=== PATIENT | male | born 1940 | race Caucasian/White ===

== ENCOUNTER 2016-08-27 04:17 | Emergency (ER) | payer MEDICARE, OTHER ==
[~2016-08-27] VITALS: Ht 172.7 cm; Wt 76.6 kg
[~2016-08-27 04:17] MED LIST: ADV50050 INHALATION; ALBU18HF INHALATION; ALBU2.5V3 NEB; RTATR NEB; SELE118S2 TOP
[2016-08-27 04:24] VITALS: Ht 172.7 cm; Wt 76.6 kg
[2016-08-27] MEDS ORDERED: HYDROCODONE/APAP (5/325) TAB PO ONE (05:00)
[2016-08-27] MEDS ORDERED: NAPROXEN 500 MG TAB PO ONE (05:00)
--- NOTE | 2016-08-27 05:19 | ERD ---
ER Documentation Chief Complaint Date/Time DATE: 08/27/16 TIME: 05:16 Chief Complaint SP GROUND LEVEL FALL, NO LOC, NASAL ABRASION, LEFT RIB PAIN (KATIE MIRELES) HPI This is a 76-year-old male presents to the ER with left-sided rib pain after he fell off of his bed a week ago. Patient sleeps on an air mattress and there was less air on his head of the bed making him roll off. Patient has had severe rib pain it is nonradiating. He denies any chest pain or shortness of breath. Today patient was going to sit down on his chair when his dog got on it instead, the patient fell and hit his nose. Bleeding was controlled before arriving to the ER. He denies any dizziness. He did not hit his head. He denies any loss of consciousness nausea or vomiting. He denies any weakness. Patient is with family member who witnessed mechanical falls. (KATIE MIRELES) ROS 12 point review of systems was done, all negative except per HPI. (AKTIE MIRELES) Medications Home Meds Active Scripts Acetaminophen* (Tylophen*) 500 Mg Capsule, 1 CAP PO Q6H Y for PAIN AND OR ELEVATED TEMP, #20 CAP Prov:RUSSEL PAZ PA-C 08/27/16 Amoxicillin/Potassium Clav (Amox-Clav 875-125 mg Tablet) 875-125 mg Tab, 1 TAB PO BID for 7 Days, #14 TAB Prov:KATIE MIRELES 08/27/16 Reported Medications Ipratropium Happy Jack* (Atrovent*) 0.5 Mg/2.5 Ml Neb, 0.5 MG NEB Q6H Y for SHORTNESS OF BREATH, #1 BOX 01/27/16 Albuterol Sulfate* (Albuterol Sulfate* Neb) 0.083%-3 Ml Neb, 2.5 MG NEB Q6 Y for SHORTNESS OF BREATH, #30 VIAL 01/27/16 Albuterol Sulfate* (Ventolin HFA*) 18 Gm Hfa.aer.ad, 2 PUFF INHALATION Q6H, #1 INHALER 01/27/16 Salmeterol Xinaf-Fluticasone* (Advair*) 500/50 Diskus Inhaler, 1 INH INHALATION BID, #1 INHALER 07/16/15 Selenium Sulfide* (Selenium Sulfide*) 118 Ml Shampoo, 1 APPLIC TOP ONCE, ML 07/16/15 Discontinued Scripts Ibuprofen* (Motrin*) 400 Mg Tab, 400 MG PO Q6, #30 TAB Prov:KATIE MIRELES 08/27/16 Allergies Allergies: Coded Allergies: benazepril (Unverified Allergy, Mild, SAUCEDO, SOB, 08/27/16) Uncoded Allergies: BENZAPRIL (Allergy, Mild, SAUCEDO, SOB, 11/19/12) REACTION UNKNOWN ANTIBIOTICS-UNKNOWN (Allergy, Unknown, 11/19/12) PMhx/Soc History of Surgery: Yes (FACIAL & HEAD SURGERY) Anesthesia Reaction: No Hx Neurological Disorder: No Hx Respiratory Disorders: No Hx Cardiac Disorders: No Hx Psychiatric Problems: No Hx Miscellaneous Medical Probl: No Hx Alcohol Use: No Hx Substance Use: No Hx Tobacco Use: Yes (QUIT 20 YEARS AGO) Smoking Status: Former smoker (KATIE MIRELES) Physical Exam Vitals Vital Signs Date Time Temp Pulse Resp B/P Pulse Ox O2 Delivery O2 Flow Rate FiO2 08/27/16 07:10 98.5 78 20 144/77 98 Room Air 08/27/16 04:24 97.6 86 20 138/90 96 (RUSSEL PAZ-C) Physical Exam GENERAL: The patient is well developed and appropriate for usual state of health , in no apparent distress. HEENT: Atraumatic. Conjunctivae are pink. Pupils equal, round, and reactive to light. Extraocular muscles are grossly intact. Bilateral tympanic membranes are clear with no evidence of erythema, bulging or perforation. No sinus tenderness. Patient has a small abrasion to the bridge of his nose. No septal hematoma NECK: C-spine is soft and supple. There is no cervical lymphadenopathy. CHEST: Clear to auscultation bilaterally. There are no rales, wheezes or rhonchi. There is an area of ecchymosis to the left ribs. HEART: Regular rate and rhythm. No murmurs, clicks, rubs or gallops. EXTREMITIES: Equal pulses bilaterally. There is no peripheral clubbing, cyanosis or edema. No focal swelling or erythema. Full range of motion. Grossly neurovascularly intact. NEURO: Alert and oriented. Cranial nerves II through XII are intact. Motor strength in all 4 extremities with 5/5 strength. Sensation grossly intact. Normal speech and gait. Negative Rhomberg. +2 DTRs. SKIN: There is no apparent rash or petechia. The skin is warm and dry. (KATIE MIRELES) Results 24 hrs Current Medications Medications (Trade) Dose Ordered Sig/Quita Route PRN Reason Start Time Stop Time Status Last Admin Dose Admin Acetaminophen/ Hydrocodone Bitart (Hayes (5/325)) 1 tab ONCE ONCE PO 08/27/16 05:00 08/27/16 05:00 DC Naproxen (Naprosyn) 500 mg ONCE ONCE PO 08/27/16 05:00 08/27/16 05:01 DC 08/27/16 05:02 (RUSSEL PAZ PA-C) Procedures/MDM Patient was signed out to me by Katie Mireles PA-C 6 AM on 08-27-2016, pending CT brain and CT facial bones. ED COURSE: The patient was stable throughout ED course. I kept the patient and/or family informed of laboratory and diagnostic imaging results throughout the ED course. DIAGNOSTIC IMAGING: Read by radiologist. DIAGNOSTIC IMAGING REPORT Patient: ARMEN BUCHANAN : 1940 Age: 76 Sex: M MR #: [id number] DOS: 08/27/16 0000 Ordering MD: KATIE MIRELES PA-C Location: [facility] Room/Bed: PROCEDURE: XR Ribs. CLINICAL INDICATION: Chest pain. TECHNIQUE: 3 frontal and oblique views of the left ribs were obtained. The images were reviewed on a PACS workstation. COMPARISON: None. FINDINGS: There is no evidence for a rib fracture. The underlying lung parenchyma is intact without evidence for pneumothorax. IMPRESSION: No acute rib fracture identified. .Rikki Galvin MD, Date Time Electronically viewed and signed by .Rikki Galvin MD, MD on 08/27/2016 05:32 .T/ CC: KATIE MIRELES DIAGNOSTIC IMAGING REPORT Patient: ARMEN BUCHANAN : 1940 Age: 76 Sex: M MR #: [id number] DOS: 08/27/16 0000 Ordering MD: KATIE MIRELES PA-C Location: [facility] Room/Bed: PROCEDURE: Facial bones. CLINICAL INDICATION: Injury and pain. TECHNIQUE: Four views of the facial bones including AP and lateral views were obtained. COMPARISON: None. FINDINGS: There are fractures of the nasal bone. There are fractures of the forehead involving the anterior wall of the frontal sinus. Visualized paranasal sinuses are otherwise clear without air fluid levels. IMPRESSION: Fractures of the forehead involving the anterior wall of the frontal sinus. Further evaluation can be made by CT. Nasal bone fractures. .Rikki Galvin MD, Date Time Electronically viewed and signed by .Rikki Galvin MD, MD on 08/27/2016 05:34 .T/ CC: KATIE MIRELES DIAGNOSTIC IMAGING REPORT Patient: ARMEN BUCHANAN : 1940 Age: 76 Sex: M MR #: [id number] DOS: 08/27/16 0000 Ordering MD: KATIE MIRELES PA-C Location: [facility] Room/Bed: PROCEDURE: CT scan of the sinuses without contrast. CLINICAL INDICATION: fall TECHNIQUE: CT scan of the sinuses without contrast was performed on a multidetector high-resolution CT scan. Standard CT scan of the sinuses without contrast protocols were performed. The total exam CTDI equals 29.53 mGy and the total exam DLP equals 595.09 mGy- cm. One or more of the following dose reduction techniques were used: - Automated exposure control. - Adjustment of the mA and/or kV according to patient size. Use of iterative reconstruction technique. COMPARISON: None. FINDINGS: There is mild soft tissue swelling along the frontal scalp. There is extensive comminuted fracture involving the anterior right left frontal sinuses with mild depression . Fracture involves the anterior medial superior right orbital wall. A small bony fragment is seen along the anterior superior left globe. The globes are intact and symmetrical without evidence of proptosis. No evidence of delete the retrobulbar are hematomas. There are fractures involving the right and left lamina papyracea which appear old. Recommend clinical correlation. There is mild concave depression of the anterior right maxillary sinus wall that appears chronic. There is comminuted right and left nasal bone fractures. Soft tissue swelling along the nose. Tiny chip fracture of the nasal spine. There are no other facial fractures. There is mucosal thickening involving the right ethmoid and maxillary sinuses consistent with chronic sinusitis. There is opacification of both frontal sinuses which may all be due to hemorrhage. No evidence of air-fluid levels within the paranasal sinuses. The mastoids are unremarkable. IMPRESSION: 1. Extensive comminuted fractures involving the right and left frontal sinuses with mild depression of the fragments. Opacification of the frontal sinuses may all be due to blood. 2. Anterior medial superior right orbital wall fracture. 3. Small bony fragment seen along the anterior superior left globe. 4. Chronic right and left lamina papyracea fractures. 5. Comminuted right and left nasal bone fractures. Tiny nasal spine chip fracture. 6. No evidence of globe rupture or retrobulbar are hematomas. 7. Mild soft tissue swelling involving the frontal scalp and paranasal region. No radiodense foreign bodies. RPTAT:AAJJ Physician Bartolome Date Time Electronically viewed and signed by Physician Bartolome on 08/27/2016 06:41 BM/ CC: KATIE MIRELES DIAGNOSTIC IMAGING REPORT Patient: ARMEN BUCHANAN : 1940 Age: 76 Sex: M MR #: [id number] DOS: 08/27/16 0000 Ordering MD: KATIE MIRELES. KELLY Location: [facility] Room/Bed: PROCEDURE: CT Brain without contrast. CLINICAL INDICATION: fall TECHNIQUE: CT scan of the brain was performed on a multidetector high- resolution CT scan. Axial imaging was obtained of the brain without contrast administration. Coronal and sagittal reformatted images were obtained from the axial source images. Standard CT scan of the head without contrast protocols were performed. The total exam CTDI equals 39.64 mGy and the total exam DLP equals 713.51 mGy- cm. One or more of the following dose reduction techniques were used: - Automated exposure control. - Adjustment of the mA and/or kV according to patient size. Use of iterative reconstruction technique. COMPARISON: None. FINDINGS: Recommend reference to the CT scan of the face Report for a facial fractures. There is comminuted fractures involving the anterior aspects of the right and left frontal sinuses. The remainder of the calvarium is intact. The ventricular system and peripheral CSF spaces are unremarkable. Negative for intracranial masses hemorrhages or midline shift. There is mild nonspecific periventricular deep white matter changes consistent with chronic microvascular ischemic changes. IMPRESSION: 1. Comminuted fractures involving the right and left frontal sinuses and recommend reference to the CT scan of the face report. 2. No evidence of intracranial masses hemorrhages or midline shift. 3. Mild nonspecific periventricular deep white matter changes. RPTAT:AAJJ Physician Bartolome Date Time Electronically viewed and signed by Physician Bartolome on 08/27/2016 06:30 BM/ CC: KATIE MIRELES MEDICAL DECISION MAKING: This is a 76-year-old male who presents with facial pain, nasal abrasions, left rib pain status post ground-level fall. Patient denied any loss of consciousness. Vital signs were reviewed. Patient was afebrile. Patient was not hypoxic. Given the x-ray imaging of the face showed fractures of the forehead involving the anterior wall of the frontal sinus and nasal bone fractures, CT imaging was advised. CT imaging of the brain showed no signs of acute hemorrhage, intracranial edema or mass-effect. CT scan of the facial bones showed extensive comminuted fractures involving the right and left frontal sinuses with mild depression of the fragments. Opacification of the frontal sinuses may all be due to blood. Anterior medial superior right orbital wall fracture. Small bony fragment seen along the anterior superior left globe. Chronic right and left lamina papyracea fractures. Comminuted right and left nasal bone fractures. Tiny nasal spine chip fracture. No evidence of globe rupture or retrobulbar are hematomas. Mild soft tissue swelling involving the frontal scalp and paranasal region. No radiodense foreign bodies. I discussed these findings with my supervising physician Dr. Matias who agreed the patient was stable for discharge. Patient will need to follow-up with a facial plastic surgeon and/or ENT specialist for further management of his symptoms. Patient will be discharged with a prescription for Augmentin and Tylenol. PRESCRIPTIONS: Tylenol Augmentin Zofran DISCHARGE: At this time, patient is stable for discharge and outpatient management. Strict head injury precautions are discussed with patient and his . I have instructed the family to monitor the patient closely and return to the ER immediately for any new or worsening symptoms including increased pain, headache , nausea, vomiting, weakness, numbness, confusion, excessive sleepiness, seizures or LOC. Patient should follow-up with his/her primary care physician in 1-2 days. The patient and/or family expressed understanding of and agreement with this plan. All questions were answered. Home care instructions were provided. (RUSSEL PAZ PA-C) Departure Diagnosis: Primary Impression: Fall Condition: Stable CHI,KATIE Messina Aug 27, 2016 05:18 RUSSEL PAZ PA-C Aug 27, 2016 19:34
[2016-08-27] MEDS ORDERED: IBUP400T22 PO (05:22)
--- NOTE | 2016-08-27 05:32 | RADRPT ---
PROCEDURE: XR Ribs. CLINICAL INDICATION: Chest pain. TECHNIQUE: 3 frontal and oblique views of the left ribs were obtained. The images were reviewed o n a PACS workstation. COMPARISON: None. FINDINGS: There is no evidence for a rib fracture. The underlying lung parenchyma is intact without evidence f or pneumothorax. IMPRESSION: No acute rib fracture identified. .Rikki Galvin MD, MD Date Time Electronically viewed and signed by .Rikki Galvin MD, MD on 08/27/2016 05:32 .T/
--- NOTE | 2016-08-27 05:34 | RADRPT ---
PROCEDURE: Facial bones. CLINICAL INDICATION: Injury and pain. TECHNIQUE: Four views of the facial bones including AP and lateral views were obtained. COMPARISON: None. FINDINGS: There are fractures of the nasal bone. There are fractures of the forehead involving the anterior w all of the frontal sinus. Visualized paranasal sinuses are otherwise clear without air fluid levels . IMPRESSION: Fractures of the forehead involving the anterior wall of the frontal sinus. Further evaluation can b e made by CT. Nasal bone fractures. .Rikki Galvin MD, Date Time Electronically viewed and signed by .Rikki Galvin MD, MD on 08/27/2016 05:34 .T/
[2016-08-27] MEDS ORDERED: AMOX1TAB10 PO (05:47)
--- NOTE | 2016-08-27 06:31 | RADRPT ---
PROCEDURE: CT Brain without contrast. CLINICAL INDICATION: fall TECHNIQUE: CT scan of the brain was performed on a multidetector high-resolution CT scan. Axial im aging was obtained of the brain without contrast administration. Coronal and sagittal reformatted i mages were obtained from the axial source images. Standard CT scan of the head without contrast prot ocols were performed. The total exam CTDI equals 39.64 mGy and the total exam DLP equals 713.51 mGy-cm. One or more of the following dose reduction techniques were used: - Automated exposure control. - Adjustment of the mA and/or kV according to patient size. Use of iterative reconstruction technique. COMPARISON: None. FINDINGS: Recommend reference to the CT scan of the face Report for a facial fractures. There is comminuted f ractures involving the anterior aspects of the right and left frontal sinuses. The remainder of the calvarium is intact. The ventricular system and peripheral CSF spaces are unremarkable. Negative for intracranial masses hemorrhages or midline shift. There is mild nonspecific periventricular mitzi p white matter changes consistent with chronic microvascular ischemic changes. IMPRESSION: 1. Comminuted fractures involving the right and left frontal sinuses and recommend reference to the CT scan of the face report. 2. No evidence of intracranial masses hemorrhages or midline shift. 3. Mild nonspecific periventricular deep white matter changes. RPTAT:AAJJ Physician Bartolome Date Time Electronically viewed and signed by Physician Bartolome on 08/27/2016 06:30 BM/
--- NOTE | 2016-08-27 06:42 | RADRPT ---
PROCEDURE: CT scan of the sinuses without contrast. CLINICAL INDICATION: fall TECHNIQUE: CT scan of the sinuses without contrast was performed on a multidetector high-resoluti on CT scan. Standard CT scan of the sinuses without contrast protocols were performed. The total exam CTDI equals 29.53 mGy and the total exam DLP equals 595.09 mGy-cm. One or more of the following dose reduction techniques were used: - Automated exposure control. - Adjustment of the mA and/or kV according to patient size. Use of iterative reconstruction technique. COMPARISON: None. FINDINGS: There is mild soft tissue swelling along the frontal scalp. There is extensive comminuted fracture involving the anterior right left frontal sinuses with mild depression . Fracture involves the ante rior medial superior right orbital wall. A small bony fragment is seen along the anterior superior left globe. The globes are intact and symmetrical without evidence of proptosis. No evidence of del ete the retrobulbar are hematomas. There are fractures involving the right and left lamina papyracea which appear old. Recommend clinical correlation. There is mild concave depression of the anterio r right maxillary sinus wall that appears chronic. There is comminuted right and left nasal bone fr actures. Soft tissue swelling along the nose. Tiny chip fracture of the nasal spine. There are no other facial fractures. There is mucosal thickening involving the right ethmoid and maxillary sinu ses consistent with chronic sinusitis. There is opacification of both frontal sinuses which may all be due to hemorrhage. No evidence of air-fluid levels within the paranasal sinuses. The mastoi ds are unremarkable. IMPRESSION: 1. Extensive comminuted fractures involving the right and left frontal sinuses with mild depression of the fragments. Opacification of the frontal sinuses may all be due to blood. 2. Anterior medial superior right orbital wall fracture. 3. Small bony fragment seen along the anterior superior left globe. 4. Chronic right and left lamina papyracea fractures. 5. Comminuted right and left nasal bone fractures. Tiny nasal spine chip fracture. 6. No evidence of globe rupture or retrobulbar are hematomas. 7. Mild soft tissue swelling involving the frontal scalp and paranasal region. No radiodense forei gn bodies. RPTAT:AAJJ Aishwarya Rod Physician Date Time Electronically viewed and signed by Aishwarya Rod Physician on 08/27/2016 06:41 BM/
[2016-08-27] MEDS ORDERED: ACET500C5 PO (06:59)
[2016-08-27 07:10] VITALS: BP 144/77; PULSE 78; RESP 20; TEMP 98.5
== END 2016-08-27 07:11 | disposition home or self-care (01) ==
LOC: FTE 04:17
DX: S29.001A Unspecified injury of muscle and tendon of front wall of thorax, initial encounter (principal); S00.31XA Abrasion of nose, initial encounter; S09.93XA Unspecified injury of face, initial encounter; R51 Headache; J44.9 Chronic obstructive pulmonary disease, unspecified; W06.XXXA Fall from bed, initial encounter; Y92.9 Unspecified place or not applicable; Z87.891 Personal history of nicotine dependence
CPT/HCPCS: 70140; 70450; 70486; 71100

== ENCOUNTER 2017-03-06 02:20 | Inpatient (IN) | payer MEDICARE, OTHER ==
[~2017-03-06] VITALS: Ht 172.7 cm; Wt 76.3 kg
[~2017-03-06 02:20] MED LIST changes: +ACET500C5 PO; +AMOX1TAB10 PO
[2017-03-06 02:47] VITALS: Ht 172.7 cm; Wt 76.3 kg
[2017-03-06] MEDS ORDERED: ALBUTEROL 0.5% (NEB) 2.5 MG/0.5 ML AMP INH STA (03:05)
[2017-03-06] MEDS ORDERED: IPRATROPIUM (NEB) 0.5 MG/2.5 ML AMP INH STA (03:05)
[2017-03-06] MEDS ORDERED: METHYLPREDNISOLONE 125 MG INJ IV STA (03:05)
--- NOTE | 2017-03-06 03:12 | ERA ---
ER Documentation Chief Complaint Date/Time DATE: 03/06/17 TIME: 03:09 Chief Complaint SOB HX of COPD, weak harder for him to ambulate. HPI 76-year-old man brought in by family members for shortness of breath. Symptoms began gradually a few days ago although got worse tonight. He does have a long history of chronic obstructive pulmonary disease and has not been using bronchodilator therapy. Patient also states for the last week he has had bilateral lower extremity edema which has never happened before. Patient denies using aspirin, he has had no fevers or chills, no vomiting or diarrhea, no chest pain, no headache or blurry vision. ROS All systems reviewed and are negative except as per history of present illness. Medications Home Meds Active Scripts Acetaminophen* (Tylophen*) 500 Mg Capsule, 1 CAP PO Q6H Y for PAIN AND OR ELEVATED TEMP, #20 CAP Prov:RUSSEL PAZ PA-C 08/27/16 Amoxicillin/Potassium Clav (Amox-Clav 875-125 mg Tablet) 875-125 mg Tab, 1 TAB PO BID for 7 Days, #14 TAB Prov:HARLAN MIRELES 08/27/16 Reported Medications Ipratropium [place]* (Atrovent*) 0.5 Mg/2.5 Ml Neb, 0.5 MG NEB Q6H Y for SHORTNESS OF BREATH, #1 BOX 01/27/16 Albuterol Sulfate* (Albuterol Sulfate* Neb) 0.083%-3 Ml Neb, 2.5 MG NEB Q6 Y for SHORTNESS OF BREATH, #30 VIAL 01/27/16 Albuterol Sulfate* (Ventolin HFA*) 18 Gm Hfa.aer.ad, 2 PUFF INHALATION Q6H, #1 INHALER 01/27/16 Salmeterol Xinaf-Fluticasone* (Advair*) 500/50 Diskus Inhaler, 1 INH INHALATION BID, #1 INHALER 07/16/15 Selenium Sulfide* (Selenium Sulfide*) 118 Ml Shampoo, 1 APPLIC TOP ONCE, ML 07/16/15 Allergies Allergies: Coded Allergies: benazepril (Unverified Allergy, Mild, SAUCEDO, SOB, 08/27/16) Uncoded Allergies: BENZAPRIL (Allergy, Mild, SAUCEDO, SOB, 11/19/12) REACTION UNKNOWN ANTIBIOTICS-UNKNOWN (Allergy, Unknown, 11/19/12) PMhx/Soc Hypertension, COPD History of Surgery: Yes (FACIAL & HEAD SURGERY) Anesthesia Reaction: No Hx Neurological Disorder: No Hx Respiratory Disorders: Yes (copd) Hx Cardiac Disorders: No Hx Psychiatric Problems: No Hx Miscellaneous Medical Probl: No Hx Alcohol Use: No Hx Substance Use: No Hx Tobacco Use: Yes (QUIT 20 YEARS AGO) Smoking Status: Current some day smoker FmHx Family History: No diabetes Physical Exam Vitals Vital Signs Date Time Temp Pulse Resp B/P Pulse Ox O2 Delivery O2 Flow Rate FiO2 03/06/17 04:10 19 168/93 100 Room Air 03/06/17 03:55 22 175/91 100 Room Air 03/06/17 03:20 74 18 96 21 03/06/17 02:55 97.7 20 180/89 92 Room Air 03/06/17 02:47 97.7 83 20 180/89 92 Physical Exam GENERAL: Well-developed, well-nourished, well-hydrated, dyspneic, afebrile HEENT: Moist mucous membranes, pink conjunctiva, no cervical spine tenderness or step-off deformities, no goiter, no jaundice or icterus, extraocular movements intact without pain. No submandibular induration, and no pharyngeal erythema NEURO: Alert and oriented 3, cranial nerves II through XII intact bilaterally, pupils equal round reactive to light, no focal deficits or facial asymmetry, sensation intact distally Strength 5/5 in upper and lower extremities bilaterally CARDIAC: Regular rate and rhythm, no murmurs rubs or gallops LUNGS: Poor breath sounds bilaterally, + crackles and wheezes, no stridor ABDOMEN: Soft nontender, no guarding, no rigidity, no rebound, no psoas sign no obturator sign. Normoactive bowel sounds SKIN: Warm and dry to touch, no abrasions, contusions, or hematomas, no lacerations, no ecchymosis, no target lesions, and without ulcers EXTREMITIES:, 3+ pitting edema in the lower extremities bilaterally, calves are bilaterally symmetrical, no Homans sign, no popliteal cord sign. Distal pulses equal and bilateral PSYCH: Normal affect without agitation or irritability Result Diagram: 03/06/17 0311 03/06/17 0311 Results 24 hrs Laboratory Tests Test 03/06/17 03:11 White Blood Count 7.410^3/ul Red Blood Count 5.0110^6/ul Hemoglobin 14.4g/dl Hematocrit 44.6% Mean Corpuscular Volume 89.0fl Mean Corpuscular Hemoglobin 28.7pg Mean Corpuscular Hemoglobin Concent 32.3g/dl Red Cell Distribution Width 13.4% Platelet Count 53058^3/UL Mean Platelet Volume 9.6fl Neutrophils % 71.3% Lymphocytes % 18.6% Monocytes % 8.2% Eosinophils % 1.5% Basophils % 0.1% Nucleated Red Blood Cells % 0.0/100WBC Neutrophils # (Manual) 5.310^3/ul Lymphocytes # 1.410^3/ul Monocytes # 0.610^3/ul Eosinophils # 0.110^3/ul Basophils # 0.010^3/ul Nucleated Red Blood Cells # 0.010^3/ul Sodium Level 144mmol/L Potassium Level 3.9mmol/L Chloride Level 98mmol/L Carbon Dioxide Level 37mmol/L Anion Gap 13 Blood Urea Nitrogen 17mg/dl Creatinine 0.77mg/dl Glucose Level 244mg/dl Calcium Level 9.4mg/dl Total Bilirubin 0.5mg/dl Direct Bilirubin 0.00mg/dl Indirect Bilirubin 0.5mg/dl Aspartate Amino Transf (AST/SGOT) 30IU/L Alanine Aminotransferase (ALT/SGPT) 42IU/L Alkaline Phosphatase 94IU/L Troponin I 0.083ng/ml B-Type Natriuretic Peptide 2390PG/ML Total Protein 8.6g/dl Albumin 4.4g/dl Globulin 4.20g/dl Albumin/Globulin Ratio 1.04 Lipase 28U/L Current Medications Medications (Trade) Dose Ordered Sig/Q[place] Route PRN Reason Start Time Stop Time Status Last Admin Dose Admin Nitroglycerin (Nitroglycerin (Sl Tab) 0.4 Mg) 1 tab ONCE ONCE SL 03/06/17 03:30 03/06/17 03:31 DC 03/06/17 03:36 Aspirin (Aspirin) 324 mg ONCE ONCE PO 03/06/17 03:30 03/06/17 03:31 DC 03/06/17 03:35 Furosemide (Lasix) 40 mg ONCE ONCE IV 03/06/17 03:30 03/06/17 03:31 DC 03/06/17 03:36 Clonidine (Catapres) 0.1 mg ONCE ONCE PO 03/06/17 03:30 03/06/17 03:31 DC 03/06/17 03:35 Albuterol (Proventil 0.5% (Neb)) 10 mg ONCE STAT INH 03/06/17 03:05 03/06/17 03:09 DC 03/06/17 03:18 Ipratropium [place] (Atrovent 0.02% (Neb)) 1 mg ONCE STAT INH 03/06/17 03:05 03/06/17 03:09 DC 03/06/17 03:18 Methylprednisolone Sodium Succinate (Solu-Medrol) 125 mg ONCE STAT IV 03/06/17 03:05 03/06/17 03:09 DC 03/06/17 03:34 Procedures/MDM IV line was established patient was placed on wheel aligner rhythm strip revealed a wide-complex sinus rhythm at about 70 bpm. Patient was afebrile. For patient's dyspnea I treated him with albuterol 10 mg via nebulizer, ipratropium 1 mg via nebulizer, methylprednisolone 125 mg IV 1. Patient also received aspirin 324 mg p.o. for cardioprotective measures, clonidine 0.1 mg p.o., nitroglycerin 0.4 mg sublingual, and furosemide 40 mg IV 1. EKG performed, read by me revealed a normal sinus rhythm at 75 bpm, left axis deviation and a right bundle branch block QRS duration 140 ms, no concerning ST elevations or depressions noted. Chest X-ray 1V Interpreted by me: Soft Tissue: No acute abnormalities Bones: No acute abnormalities Mediastinum/Cardiac Silhouette/Lungs: No acute abnormalities Critical Care: Time: 50 minutes, this was time separate from other billable procedures. Treatments/Evaluations: Close monitoring and treatment of unstable vital signs, cardiorespiratory, and neurologic status, while maintaining tight balance of fluid, respiratory, and cardiac interventions. CBC and electrolytes were unremarkable, liver function test was normal, troponin negative, BNP elevated at about 2400. Patient remains symptomatic and has begun to diurese, he will be admitted to telemetry setting for continued medical management Departure Diagnosis: Primary Impression: COPD (chronic obstructive pulmonary disease) Qualified Code: J44.1 - Chronic obstructive pulmonary disease with acute exacerbation Additional Impressions: CHF (congestive heart failure) Qualified Code: I50.21 - Acute systolic congestive heart failure Hypertensive emergency Condition: DILAN Stearns MD Mar 06, 2017 03:12
[2017-03-06 03:30] LABS: BASOPHILS % 0.1 % (0.0-2.0); EOSINOPHILS # 0.1 10^3/ul (0.0-0.5); EOSINOPHILS % 1.5 % (0.0-7.0); HEMATOCRIT 44.6 % (42.0-52.0); HEMOGLOBIN 14.4 g/dl (14.0-18.0); LYMPHOCYTES # 1.4 10^3/ul (0.8-2.9); LYMPHOCYTES % 18.6 % (15.0-51.0); MEAN CORPUSCULAR HEMOGLOBIN 28.7 pg (29.0-33.0); MEAN CORPUSCULAR HGB CONC 32.3 g/dl (32.0-37.0); MEAN PLATELET VOLUME 9.6 fl (7.4-10.4); MONOCYTE # 0.6 10^3/ul (0.3-0.9); MONOCYTES % 8.2 % (0.0-11.0); NEUTROPHILS % 71.3 % (39.0-77.0); PLATELET COUNT 207 10^3/UL (140-415); RED BLOOD COUNT 5.01 10^6/ul (4.70-6.10); RED CELL DISTRIBUTION WIDTH 13.4 % (11.5-14.5); WHITE BLOOD COUNT 7.4 10^3/ul (4.8-10.8)
[2017-03-06] MEDS ORDERED: NITROGLYCERIN (SL) 0.4 MG TAB SL ONE (03:30)
[2017-03-06] MEDS ORDERED: FUROSEMIDE 40 MG INJ IV ONE (03:30)
[2017-03-06] MEDS ORDERED: ASPIRIN 81 MG TAB PO ONE (03:30)
[2017-03-06 03:51] LABS: ALBUMIN 4.4 g/dl (3.3-4.9); ALBUMIN/GLOBULIN RATIO 1.04; BILIRUBIN,INDIRECT 0.5 mg/dl (0-1.1); BILIRUBIN,TOTAL 0.5 mg/dl (0.2-1.3); CALCIUM 9.4 mg/dl (8.4-10.2); CREATININE 0.77 mg/dl (0.61-1.24); POTASSIUM 3.9 mmol/L (3.5-5.1); TOTAL PROTEIN 8.6 g/dl (6.1-8.1)
[2017-03-06 04:02] LABS: TROPONIN-I 0.083 ng/ml (0.00-0.12)
--- NOTE | 2017-03-06 04:26 | RADRPT ---
PROCEDURE: Chest. CLINICAL INDICATION: Chest pain. TECHNIQUE: Single frontal view of the chest was obtained. COMPARISON: 08/27/2016. FINDINGS: The cardiac silhouette is within normal limits. The aortic arch is calcified. There is no focal co nsolidation, vascular congestion or pleural effusion. There is no pneumothorax. IMPRESSION: No evidence for active cardiopulmonary disease. Aortic atherosclerosis. .Rikki Galvin MD, MD Date Time Electronically viewed and signed by .Rikki Galvin MD, on 03/06/2017 04:25 .T/
[2017-03-06] MEDS ORDERED: ONDANSETRON 4 MG INJ IV STA (12:20)
[2017-03-06] MEDS ORDERED: GLUCOSE GEL 15 GRAM TUBE BUCCAL PRN (12:30)
[2017-03-06] MEDS ORDERED: PROVENTIL HFA 6.7GM INHALER INH SCH (12:30)
[2017-03-06] MEDS ORDERED: ALBUTEROL 0.083% (NEB) 2.5 MG/3 ML AMP NEB PRN (12:30)
[2017-03-06] MEDS ORDERED: HYPOGLYCEMIA PROTOCOL when Glucose is <70 mg/dL or symptomatic <90 mg/dL. XX ONE (12:30)
[2017-03-06] MEDS ORDERED: GLUCAGON 1 MG INJ IM PRN (12:30)
[2017-03-06] MEDS ORDERED: hydrALAzine 20 MG INJ IV PRN (12:30)
[2017-03-06] MEDS ORDERED: GLUCOSE GEL 15 GRAM TUBE PO PRN ×2 (12:30)
[2017-03-06] MEDS ORDERED: ACETAMINOPHEN 1000MG/100ML IV 100 ML IVPB PRN (12:30)
[2017-03-06] MEDS ORDERED: IPRATROPIUM (NEB) 0.5 MG/2.5 ML AMP NEB PRN (12:30)
[2017-03-06] MEDS ORDERED: Discontinue current oral sulfonylureas (glyburide, glipizide, and/or glimepiride) prior to XX ONE (12:30)
[2017-03-06] MEDS ORDERED: DEXTROSE 50% 50 ML SYRINGE IV PRN ×2 (12:30)
[2017-03-06 12:37] LABS: CHOL/HDL RATIO 3.1 RATIO
[2017-03-06] MEDS ORDERED: ACETAMINOPHEN 325 MG TAB PO PRN (13:00)
[2017-03-06] MEDS ORDERED: INSULIN ASPART [NOVOLOG] 3 ML PEN SC SCH (13:00)
--- NOTE | 2017-03-06 13:48 | RADRPT ---
PROCEDURE: US Lower extremity venous, bilateral CLINICAL INDICATION: edema, shortness of breath TECHNIQUE: Multiple sonographic images of the bilateral lower extremity deep venous system was ob tained utilizing grayscale, color-flow, compressive sonography and doppler imaging with augmentation . The images were reviewed on a PACS workstation. COMPARISON: None. FINDINGS: There is normal compressibility and flow within the bilateral common femoral, superficial femoral , posterior tibial, peroneal and popliteal veins. RPTAT: AA IMPRESSION: No sonographic evidence for deep venous thrombosis in bilateral lower extremities. Physician Chad Date Time Electronically viewed and signed by Physician Chad on 03/06/2017 13:48 /
[2017-03-06 14:59] VITALS: TEMP 98
--- NOTE | 2017-03-06 15:03 | HP ---
Date/Time of Note Date/Time of Note DATE: 03/06/17 TIME: 11:57 Assessment/Plan VTE Prophylaxis VTE Prophylaxis Intervention: SCD's Assessment/Plan Assessment/Plan COPD (chronic obstructive pulmonary disease) - Pulmonary consult- Dr Islas notified - breathing treatment - solumedrol - Levaquin CHF (congestive heart failure) - Acute systolic congestive heart failure - Cardiology consult- Dr Rincon - 2d ECHO - BLE SWELLING - Venous Doppler r/o DVT - Elevate BLE at all times Hypertensive emergency- BP stable now FACIAL & HEAD SURGERY Current some day smoker, QUIT 20 YEARS AGO - Smoking cessation PLAN: Dw Dr Erazo/staff HPI/ROS Admit Date/Time Admit Date/Time Hx of Present Illness 76-year-old man brought in by family members for shortness of breath. Symptoms began gradually a few days ago although got worse tonight. He does have a long history of chronic obstructive pulmonary disease and has not been using bronchodilator therapy. Patient also states for the last week he has had bilateral lower extremity edema which has never happened before. Patient denies using aspirin, he has had no fevers or chills, no vomiting or diarrhea, no chest pain, no headache or blurry vision. ROS All systems reviewed and are negative except as per history of present illness. Allergies Allergies: Coded Allergies: benazepril (Unverified Allergy, Mild, SAUCEDO, SOB, 08/27/16) Uncoded Allergies: BENZAPRIL (Allergy, Mild, SAUCEDO, SOB, 11/19/12) REACTION UNKNOWN ANTIBIOTICS-UNKNOWN (Allergy, Unknown, 11/19/12) PMH/Family/Social Past Medical History PMhx/Soc Hypertension, COPD History of Surgery: Yes (FACIAL & HEAD SURGERY) Anesthesia Reaction: No Hx Neurological Disorder: No Hx Respiratory Disorders: Yes (copd) Hx Cardiac Disorders: No Hx Psychiatric Problems: No Hx Miscellaneous Medical Probl: No Hx Alcohol Use: No Hx Substance Use: No Hx Tobacco Use: Yes (QUIT 20 YEARS AGO) Smoking Status: Current some day smoker FmHx Family History: No diabetes Social History Smoking Status: Current some day smoker Exam/Review of Systems Vital Signs Vitals Vital Signs Date Time Temp Pulse Resp B/P Pulse Ox O2 Delivery O2 Flow Rate FiO2 03/06/17 09:30 98.0 62 20 127/68 97 Room Air 2.0 Nasal Cannula 03/06/17 03:20 21 Intake and Output 03/05/17 03/05/17 03/06/17 15:00 23:00 07:00 Output Total 1600 ml Balance -1600 ml Exam Constitutional: alert, oriented, well developed Respiratory: diminished breath sounds Cardiovascular: nl pulses, regular rate and rhythm Gastrointestinal: non-tender, soft Musculoskeletal: swelling Extremities: edema, other (3+ pitting edema in the lower extremities bilaterally, calves are bilaterally symmetrical, no Homans sign, no popliteal cord sign. Distal pulses equal and bilateral) Neurological: confused, nl speech Labs Result Diagram: 03/06/1731003/06/17310 EVA YIP Mar 06, 2017 12:07
[2017-03-06] MEDS: LEVOFLOXACIN 500MG/D5W (PMX) 100 ML IVPB SCH (15:13)
--- NOTE | 2017-03-06 16:15 | CONS ---
Date/Time of Note Date/Time of Note DATE: 03/06/17 TIME: 16:12 Assessment/Plan Assessment/Plan Problems: (1) Epistaxis Status: Acute (2) Hypertension Status: Acute (3) Laceration Status: Acute (4) COPD (chronic obstructive pulmonary disease) Status: Acute Qualifiers: Qualified Code: J44.1 - Chronic obstructive pulmonary disease with acute exacerbation (5) CHF (congestive heart failure) Status: Acute Qualifiers: Qualified Code: I50.21 - Acute systolic congestive heart failure (6) Hypertensive emergency Status: Acute Additional Assessment/Plan Heart failure ( acute syslotic/diastolic unknown) COPD HTN HLD Patient is feeling better now after ER treatment had pitting edema in legs bilateral will add lasix to h is treatment 2D echo cardiography He clinically looks stable will optimize medically and consider out pt work up Consultation Date/Type/Reason Admit Date/Time Date of Consultation: Mar 06, 2017 Type of Consultation: Interventional Cardiology Reason for Consultation SOB Hx of Present Illness Patient is 76 year old M with PMH of HTN, hLD, COPD who came in with SOB, using accesory ms, no CP or palpitation. EKG showing RBBB with APCx Constitutional: no complaints Social History Smoking Status: Current some day smoker Exam/Review of Systems Vital Signs Vitals Vital Signs Date Time Temp Pulse Resp B/P Pulse Ox O2 Delivery O2 Flow Rate FiO2 03/06/17 14:59 98.0 72 20 156/67 97 Room Air 2.0 Nasal Cannula 03/06/17 03:20 21 Intake and Output 03/05/17 03/05/17 03/06/17 15:00 23:00 07:00 Output Total 1600 ml Balance -1600 ml Exam Constitutional: alert, oriented Psych: no complaints Head: normocephalic Eyes: nl conjunctiva ENMT: nl external ears & nose Neck: supple Respiratory: clear to auscultation Cardiovascular: regular rate and rhythm Gastrointestinal: soft Results Result Diagram: 03/06/17 0311 03/06/17 0311 Results 24 hrs Laboratory Tests Test 03/06/17 03:11 03/06/17 11:00 White Blood Count 7.4 # Red Blood Count 5.01 Hemoglobin 14.4 Hematocrit 44.6 Mean Corpuscular Volume 89.0 Mean Corpuscular Hemoglobin 28.7 L Mean Corpuscular Hemoglobin Concent 32.3 Red Cell Distribution Width 13.4 Platelet Count 207 Mean Platelet Volume 9.6 Neutrophils % 71.3 Lymphocytes % 18.6 Monocytes % 8.2 Eosinophils % 1.5 Basophils % 0.1 Nucleated Red Blood Cells % 0.0 Neutrophils # (Manual) 5.3 Lymphocytes # 1.4 Monocytes # 0.6 Eosinophils # 0.1 Basophils # 0.0 Nucleated Red Blood Cells # 0.0 Sodium Level 144 Potassium Level 3.9 Chloride Level 98 Carbon Dioxide Level 37 H Anion Gap 13 Blood Urea Nitrogen 17 Creatinine 0.77 Glucose Level 244 H Calcium Level 9.4 Total Bilirubin 0.5 Direct Bilirubin 0.00 Indirect Bilirubin 0.5 Aspartate Amino Transf (AST/SGOT) 30 Alanine Aminotransferase (ALT/SGPT) 42 Alkaline Phosphatase 94 Troponin I 0.083 B-Type Natriuretic Peptide 2390 H 2450 H Total Protein 8.6 H Albumin 4.4 Globulin 4.20 H Albumin/Globulin Ratio 1.04 Lipase 28 Triglycerides Level 94 Cholesterol Level 162 LDL Cholesterol, Calculated 91 HDL Cholesterol 52 Cholesterol/HDL Ratio 3.1 Medications Medications Current Medications Albuterol (Proventil 0.083% (Neb)) 2.5 mg Q6 PRN NEB SHORTNESS OF BREATH; Start 03/06/17 at 12:30 Albuterol (Proventil (O.r. Use Only)) 2 puff Q6H INH ; Start 03/06/17 at 12:30 Ipratropium [place] (Atrovent 0.02% (Neb)) 0.5 mg Q6H PRN NEB SHORTNESS OF BREATH; Start 03/06/17 at 12:30 Salmeterol Xinafoate/ Fluticasone (Advair 500/50 Diskus) 1 inh BID INH ; Start 03/06/17 at 21:00 Hydralazine HCl (Apresoline) 10 mg Q6 PRN IV ELEVATED BLOOD PRESSURE; Start 04/12 at 12:30 Furosemide (Lasix) 40 mg DAILY IV ; Start 03/07/17 at 09:00 Pantoprazole (Protonix Tab) 40 mg DAILY@06 PO ; Start 03/07/17 at 06:00 Methylprednisolone Sodium Succinate 60 mg 60 mg DAILY IV ; Start 03/07/17 at 09: 00 Levofloxacin/ Dextrose (Levaquin 500mg/ D5W 100 ml (Pmx)) 100 ml @ 100 mls/hr DAILY IVPB Last administered on 03/06/17t 15:13; Admin Dose 100 MLS/HR; Start 03/06/17 at 13:00 Miscellaneous Information 1 ea NOTE XX ; Start 03/06/17 at 12:30 Glucose (Glutose) 15 gm Q15M PRN PO DECREASED GLUCOSE; Start 03/06/17 at 12:30 Glucose (Glutose) 22.5 gm Q15M PRN PO DECREASED GLUCOSE; Start 03/06/17 at 12: 30 Dextrose (D50w Syringe) 25 ml Q15M PRN IV DECREASED GLUCOSE; Start 03/06/17 at 12:30 Dextrose (D50w Syringe) 50 ml Q15M PRN IV DECREASED GLUCOSE; Start 03/06/17 at 12:30 Glucagon (Glucagen) 1 mg Q15M PRN IM DECREASED GLUCOSE; Start 03/06/17 at 12:30 Glucose (Glutose) 15 gm Q15M PRN BUCCAL DECREASED GLUCOSE; Start 03/06/17 at 12 :30 Acetaminophen (Tylenol Tab) 650 mg Q6H PRN PO TEMP GREATER THAN 100.6; Start at 13:00 OFELIA HARDY MD Mar 06, 2017 16:15
[2017-03-06 16:39] VITALS: BP 127/78; RESP 18
[2017-03-06] MEDS: INSULIN ASPART [NOVOLOG] 3 ML PEN SC SCH ×2 (17:08→21:00)
[2017-03-06] MEDS: ALBUTEROL 18 GM INHALER INH SCH ×2 (18:02→22:39)
--- NOTE | 2017-03-06 18:05 | CONS ---
DATE OF ADMISSION: 03/06/2017 DATE OF CONSULTATION: 03/06/2017 REASON FOR CONSULTATION: Shortness of breath. HISTORY OF PRESENT ILLNESS: This is a 76-year-old gentleman with a previous tobacco history, long history of COPD not on home O2 who comes in with several day history of increasing shortness of breath, orthopnea and PND. No hemoptysis or hematemesis. No recent travel history. No sick contacts. Admission chest x-ray was unremarkable. A lower extremity Doppler showed no evidence of deep vein thrombosis. The patient states he does not use inhalers on a regular basis, does not experience frequent exacerbations. PAST MEDICAL HISTORY: COPD, hypertension, hyperlipidemia. ALLERGIES: BENAZEPRIL. MEDICATION: Per chart. SOCIAL HISTORY: He is an ex-smoker. No alcohol. No history of drug use. FAMILY HISTORY: Noncontributory. REVIEW OF SYSTEMS: A 12-point review of systems negative other than that mentioned above. PHYSICAL EXAMINATION: GENERAL: A well-nourished, well-developed gentleman, poor dentition. VITAL SIGNS: Temperature 98, pulse is 72, blood pressure 156/70, O2 sat 96 percent on 2 L nasal cannula. NECK: Supple. No JVD or lymphadenopathy. CARDIAC: S1, S2. No added sounds or murmurs. CHEST: Diminished air entry bilaterally. ABDOMEN: Soft, nontender. No guarding or rebound. EXTREMITIES: Without cyanosis, clubbing or edema. NEUROLOGIC: Intact with no focal deficits. SKIN: Has extensive tattoos. LABORATORY: White count 7.4, hemoglobin 14.6, platelets 207,000. BUN 17, creatinine 0.77. BNP 2390. EKG shows no acute ischemic changes. IMPRESSION: 1. Exacerbation of chronic obstructive pulmonary disease. 2. Prior tobacco history. PLAN: 1. Continue bronchodilators. 2. Steroid taper. 3. Outpatient pulmonary function tests. 4. Consider echocardiogram for mild CHF. 5. DVT and GI prophylaxis. Dictated By: Austin Islas MD /herlinda/janette /Document#: [id number]
[2017-03-06 19:49] VITALS: BP 119/65; RESP 19
[2017-03-06 20:03] VITALS: PULSE 100
[2017-03-06] MEDS: SALMETEROL/FLUTICASONE 500/50 INHA INH SCH ×2 (22:16→22:39)
[2017-03-06 23:55] VITALS: BP 110/65; RESP 19
[2017-03-07] VITALS (12 sets, daily range): BP systolic 93–156; BP diastolic 54–100; PULSE 85–96; RESP 18–19
[2017-03-07] MEDS ORDERED: ACCU-CHEK XX SCH (02:00)
[2017-03-07] MEDS: ALBUTEROL 18 GM INHALER INH SCH ×4 (04:30→22:30)
[2017-03-07] MEDS: PANTOPRAZOLE (EC) 40 MG TAB PO SCH (06:03)
[2017-03-07] MEDS ORDERED: VITAMIN A & D 5 GM OINT PACKET TOP ONE (06:44)
[2017-03-07] MEDS: SALMETEROL/FLUTICASONE 500/50 INHA INH SCH ×2 (08:22→20:04)
[2017-03-07] MEDS: INSULIN ASPART [NOVOLOG] 3 ML PEN SC SCH ×4 (08:22→20:10)
[2017-03-07] MEDS: METHYLPREDNISOLONE 125 MG INJ IV SCH (08:23)
[2017-03-07] MEDS: LEVOFLOXACIN 500MG/D5W (PMX) 100 ML IVPB SCH (08:28)
[2017-03-07 08:33] LABS: ALBUMIN/GLOBULIN RATIO 1.14; BILIRUBIN,INDIRECT 0.2 mg/dl (0-1.1); BILIRUBIN,TOTAL 0.2 mg/dl (0.2-1.3); CREATININE 1.41 mg/dl (0.61-1.24); POTASSIUM 4.5 mmol/L (3.5-5.1); TOTAL PROTEIN 7.5 g/dl (6.1-8.1)
[2017-03-07] MEDS ORDERED: FUROSEMIDE 40 MG INJ IV SCH (09:00)
--- NOTE | 2017-03-07 10:31 | CONS ---
Date/Time of Note Date/Time of Note DATE: 03/07/17 TIME: 10:29 Assessment/Plan Assessment/Plan Additional Assessment/Plan Assessment and recommendations; 1. Patient admitted with COPD exacerbation with acute bronchitis with marked overall clinical improvement. 2. Currently no evidence of any congestive heart failure. 3. Increase in serum creatinine likely from diuresis. Discontinue Lasix. Start IV hydration with normal saline at 75 mL/h. Monitor renal function. Continue current treatment. Consultation Date/Type/Reason Admit Date/Time Mar 06, 2017 at 04:16 Initial Consult Date 03/06/17 Type of Consultation: Pulmonary 24 HR Interval Summary Free Text/Dictation Patient condition stable. Reports marked improvement in shortness of breath. Denies any wheezing, chest pain, coughing. Any sputum production. Any fever or chills. General exam; elderly male, awake and alert. Currently in no distress. Exam/Review of Systems Vital Signs Vitals Vital Signs Date Time Temp Pulse Resp B/P Pulse Ox O2 Delivery O2 Flow Rate FiO2 03/07/17 08:22 93 03/07/17 08:07 98.0 18 136/100 98 03/07/17 07:44 2.0 03/06/17 23:27 21 03/06/17 23:27 Nasal Cannula Exam HEENT exam; supple neck, no JVD. No lymphadenopathy. Midline trachea. No thyromegaly. Patient is edentulous. Pupils are midsize bilaterally. Chest exam; diminished but clear breath sounds. S1-S2 audible, no murmurs. Regular rhythm. Next Abdomen exam; soft, scaphoid. No organomegaly. Bowel sounds audible. Nontender. Extremity exam; no peripheral edema. No clubbing. Pulses 1+ bilaterally. [employer] exam; no focal deficit. Results Result Diagram: 03/06/17 0311 03/07/17 0637 Results 24 hrs Laboratory Tests Test 03/06/17 11:00 03/06/17 16:23 03/06/17 21:33 03/07/17 06:37 B-Type Natriuretic Peptide 2450 H Triglycerides Level 94 Cholesterol Level 162 LDL Cholesterol, Calculated 91 HDL Cholesterol 52 Cholesterol/HDL Ratio 3.1 Bedside Glucose 255 H 178 Sodium Level 142 Potassium Level 4.5 Chloride Level 96 L Carbon Dioxide Level 34 H Anion Gap 17 H Blood Urea Nitrogen 35 #H Creatinine 1.41 H Glucose Level 274 H Calcium Level 9.0 Total Bilirubin 0.2 Direct Bilirubin 0.00 Indirect Bilirubin 0.2 Aspartate Amino Transf (AST/SGOT) 28 Alanine Aminotransferase (ALT/SGPT) 33 Alkaline Phosphatase 78 Total Protein 7.5 # Albumin 4.0 Globulin 3.50 H Albumin/Globulin Ratio 1.14 Test 03/07/17 07:57 Bedside Glucose 325 H Medications Medications Current Medications Albuterol (Proventil 0.083% (Neb)) 2.5 mg Q6 PRN NEB SHORTNESS OF BREATH; Start 03/06/17 at 12:30 Ipratropium [place] (Atrovent 0.02% (Neb)) 0.5 mg Q6H PRN NEB SHORTNESS OF BREATH Last administered on 03/06/17 23:22; Admin Dose 0.5 MG; Start 03/06/17 at 12:30 Salmeterol Xinafoate/ Fluticasone (Advair 500/50 Diskus) 1 inh BID INH Last administered on 03/07/17 08:22; Admin Dose 1 INH; Start 03/06/17 at 21:00 Hydralazine HCl (Apresoline) 10 mg Q6 PRN IV ELEVATED BLOOD PRESSURE; Start 04/12 at 12:30 Furosemide (Lasix) 40 mg DAILY IV Last administered on 03/07/17 08:23; Admin Dose 40 MG; Start 03/07/17 at 09:00 Pantoprazole (Protonix Tab) 40 mg DAILY@06 PO Last administered on 03/07/17 06 :03; Admin Dose 40 MG; Start 03/07/17 at 06:00 Methylprednisolone Sodium Succinate 60 mg 60 mg DAILY IV Last administered on 08:23; Admin Dose 60 MG; Start 03/07/17 at 09:00 Levofloxacin/ Dextrose (Levaquin 500mg/ D5W 100 ml (Pmx)) 100 ml @ 100 mls/hr DAILY IVPB Last administered on 03/07/17 08:28; Admin Dose 100 MLS/HR; Start 03/06/17 at 13:00 Miscellaneous Information 1 ea NOTE XX ; Start 03/06/17 at 12:30 Glucose (Glutose) 15 gm Q15M PRN PO DECREASED GLUCOSE; Start 03/06/17 at 12:30 Glucose (Glutose) 22.5 gm Q15M PRN PO DECREASED GLUCOSE; Start 03/06/17 at 12: 30 Dextrose (D50w Syringe) 25 ml Q15M PRN IV DECREASED GLUCOSE; Start 03/06/17 at 12:30 Dextrose (D50w Syringe) 50 ml Q15M PRN IV DECREASED GLUCOSE; Start 03/06/17 at 12:30 Glucagon (Glucagen) 1 mg Q15M PRN IM DECREASED GLUCOSE; Start 03/06/17 at 12:30 Glucose (Glutose) 15 gm Q15M PRN BUCCAL DECREASED GLUCOSE; Start 03/06/17 at 12 :30 Acetaminophen (Tylenol Tab) 650 mg Q6H PRN PO TEMP GREATER THAN 100.6; Start at 13:00 Albuterol (Ventolin Hfa) 2 puff Q6H INH Last administered on 03/07/17t 09:56; Admin Dose 2 PUFF; Start 03/06/17 at 16:30 MAURIZIO OMER Mar 07, 2017 10:31
[2017-03-07] MEDS: SOD CHLORIDE 0.9% 1,000 ML IV SCH ×2 (10:55→23:41)
--- NOTE | 2017-03-07 17:41 | PN ---
Date/Time of Note Date/Time of Note DATE: 03/07/17 TIME: 17:31 Assessment/Plan VTE Prophylaxis VTE Prophylaxis Intervention: other Lines/Catheters IV Catheter Type (from Nrsg): Peripheral IV Assessment/Plan Assessment/Plan COPD (chronic obstructive pulmonary disease) - Pulmonary consult- Dr Islas notified - breathing treatment - solumedrol - Levaquin - JEROME- elevated Cr- 1.41 sec to Diuresis- Lasix DCD now, con t to monitor - will get Nephrology if doesnt improve. CHF (congestive heart failure) - Acute systolic congestive heart failure - Cardiology consult- Dr Rincon - 2d ECHO - BLE SWELLING - Venous Doppler r/o DVT-negative - Elevate BLE at all times Hypertensive emergency- BP stable now - sp FACIAL & HEAD SURGERY Current some day smoker, QUIT 20 YEARS AGO - Smoking cessation PLAN: Fabio Erazo/staff Subjective 24 Hr Interval Summary Constitutional: requiring O2 Respiratory: shortness of breath Cardiovascular: no complaints Gastrointestinal: no complaints Genitourinary: no complaints Musculoskeletal: no complaints Skin: no complaints Exam/Review of Systems Vital Signs Vitals Vital Signs Date Time Temp Pulse Resp B/P Pulse Ox O2 Delivery O2 Flow Rate FiO2 03/07/17 16:21 98.0 78 18 135/75 98 03/07/17 07:44 2.0 03/06/17 23:27 21 03/06/17 23:27 Nasal Cannula Exam Constitutional: alert, well developed Respiratory: diminished breath sounds Cardiovascular: nl pulses Gastrointestinal: non-tender, soft Musculoskeletal: swelling Extremities: edema Neurological: nl speech Results Result Diagram: 03/06/17 0311 03/07/17 0637 Results 24 hrs Laboratory Tests Test 03/06/17 21:33 03/07/17 06:37 03/07/17 07:57 03/07/17 11:27 Bedside Glucose 178 325 H 193 Sodium Level 142 Potassium Level 4.5 Chloride Level 96 L Carbon Dioxide Level 34 H Anion Gap 17 H Blood Urea Nitrogen 35 #H Creatinine 1.41 H Glucose Level 274 H Hemoglobin A1c 7.4 H Calcium Level 9.0 Total Bilirubin 0.2 Direct Bilirubin 0.00 Indirect Bilirubin 0.2 Aspartate Amino Transf (AST/SGOT) 28 Alanine Aminotransferase (ALT/SGPT) 33 Alkaline Phosphatase 78 Total Protein 7.5 # Albumin 4.0 Globulin 3.50 H Albumin/Globulin Ratio 1.14 Test 03/07/17 17:09 Bedside Glucose 310 H Medications Medications Current Medications Albuterol (Proventil 0.083% (Neb)) 2.5 mg Q6 PRN NEB SHORTNESS OF BREATH; Start 03/06/17 at 12:30 Ipratropium [place] (Atrovent 0.02% (Neb)) 0.5 mg Q6H PRN NEB SHORTNESS OF BREATH Last administered on 03/06/17 23:22; Admin Dose 0.5 MG; Start 03/06/17 at 12:30 Salmeterol Xinafoate/ Fluticasone (Advair 500/50 Diskus) 1 inh BID INH Last administered on 03/07/17 08:22; Admin Dose 1 INH; Start 03/06/17 at 21:00 Hydralazine HCl (Apresoline) 10 mg Q6 PRN IV ELEVATED BLOOD PRESSURE; Start 04/12 at 12:30 Pantoprazole (Protonix Tab) 40 mg DAILY@06 PO Last administered on 03/07/17 06 :03; Admin Dose 40 MG; Start 03/07/17 at 06:00 Methylprednisolone Sodium Succinate 60 mg 60 mg DAILY IV Last administered on 08:23; Admin Dose 60 MG; Start 03/07/17 at 09:00 Levofloxacin/ Dextrose (Levaquin 500mg/ D5W 100 ml (Pmx)) 100 ml @ 100 mls/hr DAILY IVPB Last administered on 03/07/17 08:28; Admin Dose 100 MLS/HR; Start 03/06/17 at 13:00 Miscellaneous Information 1 ea NOTE XX ; Start 03/06/17 at 12:30 Glucose (Glutose) 15 gm Q15M PRN PO DECREASED GLUCOSE; Start 03/06/17 at 12:30 Glucose (Glutose) 22.5 gm Q15M PRN PO DECREASED GLUCOSE; Start 03/06/17 at 12: 30 Dextrose (D50w Syringe) 25 ml Q15M PRN IV DECREASED GLUCOSE; Start 03/06/17 at 12:30 Dextrose (D50w Syringe) 50 ml Q15M PRN IV DECREASED GLUCOSE; Start 03/06/17 at 12:30 Glucagon (Glucagen) 1 mg Q15M PRN IM DECREASED GLUCOSE; Start 03/06/17 at 12:30 Glucose (Glutose) 15 gm Q15M PRN BUCCAL DECREASED GLUCOSE; Start 03/06/17 at 12 :30 Acetaminophen (Tylenol Tab) 650 mg Q6H PRN PO TEMP GREATER THAN 100.6; Start at 13:00 Albuterol 2 puff 2 puff Q6H INH Last administered on 03/07/17 17:12; Admin Dose 2 PUFF; Start 03/06/17 at 16:30 Sodium Chloride (NS) 1,000 ml @ 75 mls/hr [id number] IV Last administered on 03/07 10:55; Admin Dose 75 MLS/HR; Start 03/07/17 at 10:30 EVA YIP Mar 07, 2017 17:41
[2017-03-07] MEDS: ENOXAPARIN 40 MG/0.4 ML SYG SC SCH (17:59)
--- NOTE | 2017-03-07 19:22 | CONS ---
Date/Time of Note Date/Time of Note DATE: 03/07/17 TIME: 19:20 Consult Date/Type/Reason Admit Date/Time Mar 06, 2017 at 04:16 Initial Consult Date 03/06/17 Type of Consultation: cARDIOLOGY Objective Vital Signs Date Time Temp Pulse Resp B/P Pulse Ox O2 Delivery O2 Flow Rate FiO2 03/07/17 16:21 98.0 78 18 135/75 98 03/07/17 07:44 2.0 03/06/17 23:27 21 03/06/17 23:27 Nasal Cannula Results/Medications Result Diagram: 03/06/17 0311 03/07/17 0637 Results 24 hrs Laboratory Tests Test 03/06/17 21:33 03/07/17 06:37 03/07/17 07:57 03/07/17 11:27 Bedside Glucose 178 325 H 193 Sodium Level 142 Potassium Level 4.5 Chloride Level 96 L Carbon Dioxide Level 34 H Anion Gap 17 H Blood Urea Nitrogen 35 #H Creatinine 1.41 H Glucose Level 274 H Hemoglobin A1c 7.4 H Calcium Level 9.0 Total Bilirubin 0.2 Direct Bilirubin 0.00 Indirect Bilirubin 0.2 Aspartate Amino Transf (AST/SGOT) 28 Alanine Aminotransferase (ALT/SGPT) 33 Alkaline Phosphatase 78 Total Protein 7.5 # Albumin 4.0 Globulin 3.50 H Albumin/Globulin Ratio 1.14 Test 03/07/17 17:09 Bedside Glucose 310 H Medications Current Medications Albuterol (Proventil 0.083% (Neb)) 2.5 mg Q6 PRN NEB SHORTNESS OF BREATH; Start 03/06/17 at 12:30 Ipratropium [place] (Atrovent 0.02% (Neb)) 0.5 mg Q6H PRN NEB SHORTNESS OF BREATH Last administered on 03/06/17 23:22; Admin Dose 0.5 MG; Start 03/06/17 at 12:30 Salmeterol Xinafoate/ Fluticasone (Advair 500/50 Diskus) 1 inh BID INH Last administered on 03/07/17 08:22; Admin Dose 1 INH; Start 03/06/17 at 21:00 Hydralazine HCl (Apresoline) 10 mg Q6 PRN IV ELEVATED BLOOD PRESSURE; Start 04/12 at 12:30 Pantoprazole (Protonix Tab) 40 mg DAILY@06 PO Last administered on 03/07/17 06 :03; Admin Dose 40 MG; Start 03/07/17 at 06:00 Methylprednisolone Sodium Succinate 60 mg 60 mg DAILY IV Last administered on 08:23; Admin Dose 60 MG; Start 03/07/17 at 09:00 Levofloxacin/ Dextrose (Levaquin 500mg/ D5W 100 ml (Pmx)) 100 ml @ 100 mls/hr DAILY IVPB Last administered on 03/07/17 08:28; Admin Dose 100 MLS/HR; Start 03/06/17 at 13:00 Miscellaneous Information 1 ea NOTE XX ; Start 03/06/17 at 12:30 Glucose (Glutose) 15 gm Q15M PRN PO DECREASED GLUCOSE; Start 03/06/17 at 12:30 Glucose (Glutose) 22.5 gm Q15M PRN PO DECREASED GLUCOSE; Start 03/06/17 at 12: 30 Dextrose (D50w Syringe) 25 ml Q15M PRN IV DECREASED GLUCOSE; Start 03/06/17 at 12:30 Dextrose (D50w Syringe) 50 ml Q15M PRN IV DECREASED GLUCOSE; Start 03/06/17 at 12:30 Glucagon (Glucagen) 1 mg Q15M PRN IM DECREASED GLUCOSE; Start 03/06/17 at 12:30 Glucose (Glutose) 15 gm Q15M PRN BUCCAL DECREASED GLUCOSE; Start 03/06/17 at 12 :30 Acetaminophen (Tylenol Tab) 650 mg Q6H PRN PO TEMP GREATER THAN 100.6; Start at 13:00 Albuterol 2 puff 2 puff Q6H INH Last administered on 03/07/17 17:12; Admin Dose 2 PUFF; Start 03/06/17 at 16:30 Sodium Chloride (NS) 1,000 ml @ 75 mls/hr [id number] IV Last administered on 03/07 10:55; Admin Dose 75 MLS/HR; Start 03/07/17 at 10:30 Enoxaparin Sodium (Lovenox) 40 mg DAILY SC Last administered on 03/07/17 17:59 ; Admin Dose 40 MG; Start 03/07/17 at 18:00 Insulin Glargine (Lantus) 15 unit DAILY@21 SC ; Start 03/07/17 at 21:00 Assessment/Plan Chief Complaint/Hosp Course Patient is 76 year old M with PMH of HTN, hLD, COPD who came in with SOB, using accesory ms, no CP or palpitation. EKG showing RBBB with APCx Problems: Additional Assessment/Plan Echo just done not updated yet. pt has elevated BNP >2000 Lower extremity edema yesterday clinically He does have cough and bronchitis as well Likely acute event due to infection and inflammation still coughing agree with holding lasix due to cr 1.4 gentle hydration. will /fu OFELIA HARDY MD Mar 07, 2017 19:22
--- NOTE | 2017-03-07 19:37 | RADRPT ---
Echocardiogram Report Patient Name: ARMEN BUCHANAN Gender: Male Date: 1940 Study Date: 06-Mar-2017 Supervisor Salvage: Dean [facility] Location: -1 Ref. Physician: EVA YIP Quality: Technically Difficult Study Procedures: Transthoracic echocardiogram with complete 2D, M-Mode, and doppler examination. Indications: Congestive Heart Failure. 2D/M Mode Doppler Measurement Value Normal Ranges Measurement Value Normal Ranges LVIDd 2D 5.5 3.5 - 5.6 cm AV Peak Theodore 1.1 m/sec LVIDs 2D 3.7 2.1 - 4.1 cm AV Peak PG 5.0 mmHg FS 2D 33.5 % LVOT Peak Theodore 0.6 m/sec LVPWd 2D 1.3 0.6 - 1.1 cm LVOT Peak PG 1.0 mmHg IVSd 2D 1.3 0.6 - 1.1 cm MV E Peak Theodore 0.5 m/sec IVS/LVPW 2D 1.0 MV A Peak Theodore 0.8 m/sec AoR Diam 2D 2.9 2.0 - 3.7 cm MV E/A 0.6 LA/Ao 2D 1 0 - 1 MV Decel Time 236 msec EDV 2D 166.0 cm3 MV E/A 0.6 ESV 2D 49.0 cm3 TR Peak Theodore 2.2 m/sec LA Dimen 2D 3.9 2.3 - 4.0 cm TR Peak PG 20.0 mmHg RVSP 23.0 mmHg Findings Left Ventricle: Normal left ventricular systolic function. Normal left ventricular cavity size. Mild concentric left ventricular hypertrophy. Ejection fraction is visually estimated at 55 %. Tissue Doppler/Mitral Doppler indices are consistent with impaired relaxation (Stage I diastolic dysfunction). Right Ventricle: Normal right ventricular size. Normal right ventricular systolic function. Left Atrium: The left atrium is normal in size. Right Atrium: The right atrium is normal in size. Mitral Valve: Mild mitral leaflet calcification. Mild mitral annular calcification. Trace mitral regurgitation. Aortic Valve: No significant aortic stenosis or insufficiency. Aortic sclerosis without stenosis. Tricuspid Valve: Normal appearance of the tricuspid valve. Estimated peak PA systolic pressure 23 mmHg. There is mild tricuspid regurgitation. Pulmonic Valve: Pulmonic valve not well visualized. There is trace pulmonic regurgitation. Pericardium: Normal pericardium with no significant pericardial effusion. Aorta: Normal aortic root. IVC: Normal size and normal respiratory collapse consistent with normal right atrial pressure. Conclusions Normal left ventricular systolic function. Normal left ventricular cavity size. Mild concentric left ventricular hypertrophy. Ejection fraction is visually estimated at 55 %. Tissue Doppler/Mitral Doppler indices are consistent with impaired relaxation (Stage I diastolic dysfunction). Normal right ventricular size. Normal right ventricular systolic function. Mild mitral leaflet calcification. Mild mitral annular calcification. Trace mitral regurgitation. No significant aortic stenosis or insufficiency. Aortic sclerosis without stenosis. Normal appearance of the tricuspid valve. Estimated peak PA systolic pressure 23 mmHg. There is mild tricuspid regurgitation. Electronically Signed By: Hugo Rincon 07-Mar-2017 19:36:01 -0700 Patient Name: ARMEN BUCHANAN Study Date: 06-Mar-2017 [id number]
[2017-03-07] MEDS: INSULIN GLARGINE [LANtus] 3 ML PEN SC SCH (20:11)
[2017-03-08] VITALS (12 sets, daily range): BP systolic 119–197; BP diastolic 58–88; PULSE 61–94; RESP 18–20
[2017-03-08] MEDS: ALBUTEROL 18 GM INHALER INH SCH ×4 (04:14→22:30)
[2017-03-08] MEDS: PANTOPRAZOLE (EC) 40 MG TAB PO SCH (04:15)
[2017-03-08] MEDS: INSULIN ASPART [NOVOLOG] 3 ML PEN SC SCH ×7 (08:00→20:46)
[2017-03-08] MEDS: SALMETEROL/FLUTICASONE 500/50 INHA INH SCH ×2 (08:55→20:44)
[2017-03-08] MEDS: LEVOFLOXACIN 500MG/D5W (PMX) 100 ML IVPB SCH (09:00)
[2017-03-08] MEDS: METHYLPREDNISOLONE 125 MG INJ IV SCH (09:00)
[2017-03-08] MEDS: ENOXAPARIN 40 MG/0.4 ML SYG SC SCH (09:07)
--- NOTE | 2017-03-08 10:17 | PN ---
Date/Time of Note Date/Time of Note DATE: 03/08/17 TIME: 10:16 Assessment/Plan VTE Prophylaxis VTE Prophylaxis Intervention: other Lines/Catheters IV Catheter Type (from Nrsg): Peripheral IV Assessment/Plan Assessment/Plan COPD (chronic obstructive pulmonary disease) - Pulmonary consult- Dr Islas notified - breathing treatment - solumedrol - Levaquin - JERMOE- elevated Cr- 1.41 sec to Diuresis- Lasix DCD now, con t to monitor - will get Nephrology if doesnt improve. CHF (congestive heart failure) - Acute systolic congestive heart failure - Cardiology consult- Dr Rincon - 2d ECHO - BLE SWELLING - Venous Doppler r/o DVT-negative - Elevate BLE at all times Hypertensive emergency- BP stable now - sp FACIAL & HEAD SURGERY Current some day smoker, QUIT 20 YEARS AGO - Smoking cessation PLAN: Fabio Erazo/staff Subjective 24 Hr Interval Summary Constitutional: requiring O2 Respiratory: shortness of breath Cardiovascular: no complaints Gastrointestinal: no complaints Genitourinary: no complaints Musculoskeletal: no complaints Exam/Review of Systems Vital Signs Vitals Vital Signs Date Time Temp Pulse Resp B/P Pulse Ox O2 Delivery O2 Flow Rate FiO2 03/08/17 08:37 98.0 77 18 128/58 98 03/08/17 05:26 2.0 03/06/17 23:27 21 03/06/17 23:27 Nasal Cannula Intake and Output 03/07/17 03/07/17 03/08/17 15:00 23:00 07:00 Intake Total 100 ml 750 ml 500 ml Output Total 1400 ml 1000 ml Balance 100 ml -650 ml -500 ml Exam Constitutional: alert, oriented, well developed Respiratory: diminished breath sounds Cardiovascular: nl pulses, regular rate and rhythm Gastrointestinal: non-tender, soft Musculoskeletal: nl extremities to inspection Extremities: normal pulses Neurological: nl mental status, nl speech Results Result Diagram: 03/06/17 0311 03/07/17 0637 Results 24 hrs Laboratory Tests Test 03/07/17 11:27 03/07/17 17:09 03/07/17 20:00 03/08/17 07:55 Bedside Glucose 193 310 H 186 150 Medications Medications Current Medications Albuterol (Proventil 0.083% (Neb)) 2.5 mg Q6 PRN NEB SHORTNESS OF BREATH; Start 03/06/17 at 12:30 Ipratropium [place] (Atrovent 0.02% (Neb)) 0.5 mg Q6H PRN NEB SHORTNESS OF BREATH Last administered on 03/06/17 23:22; Admin Dose 0.5 MG; Start 03/06/17 at 12:30 Salmeterol Xinafoate/ Fluticasone (Advair 500/50 Diskus) 1 inh BID INH Last administered on 03/08/17 08:55; Admin Dose 1 INH; Start 03/06/17 at 21:00 Hydralazine HCl (Apresoline) 10 mg Q6 PRN IV ELEVATED BLOOD PRESSURE; Start 04/12 at 12:30 Pantoprazole (Protonix Tab) 40 mg DAILY@06 PO Last administered on 03/08/17 04 :15; Admin Dose 40 MG; Start 03/07/17 at 06:00 Methylprednisolone Sodium Succinate 60 mg 60 mg DAILY IV Last administered on 09:00; Admin Dose 60 MG; Start 03/07/17 at 09:00 Levofloxacin/ Dextrose (Levaquin 500mg/ D5W 100 ml (Pmx)) 100 ml @ 100 mls/hr DAILY IVPB Last administered on 03/08/17 09:00; Admin Dose 100 MLS/HR; Start 03/06/17 at 13:00 Miscellaneous Information 1 ea NOTE XX ; Start 03/06/17 at 12:30 Glucose (Glutose) 15 gm Q15M PRN PO DECREASED GLUCOSE; Start 03/06/17 at 12:30 Glucose (Glutose) 22.5 gm Q15M PRN PO DECREASED GLUCOSE; Start 03/06/17 at 12: 30 Dextrose (D50w Syringe) 25 ml Q15M PRN IV DECREASED GLUCOSE; Start 03/06/17 at 12:30 Dextrose (D50w Syringe) 50 ml Q15M PRN IV DECREASED GLUCOSE; Start 03/06/17 at 12:30 Glucagon (Glucagen) 1 mg Q15M PRN IM DECREASED GLUCOSE; Start 03/06/17 at 12:30 Glucose (Glutose) 15 gm Q15M PRN BUCCAL DECREASED GLUCOSE; Start 03/06/17 at 12 :30 Acetaminophen (Tylenol Tab) 650 mg Q6H PRN PO TEMP GREATER THAN 100.6; Start at 13:00 Albuterol 2 puff 2 puff Q6H INH Last administered on 03/08/17 09:49; Admin Dose 2 PUFF; Start 03/06/17 at 16:30 Sodium Chloride (NS) 1,000 ml @ 75 mls/hr [id number] IV Last administered on 03/07 23:41; Admin Dose 75 MLS/HR; Start 03/07/17 at 10:30 Enoxaparin Sodium (Lovenox) 40 mg DAILY SC Last administered on 03/08/17 09:07 ; Admin Dose 40 MG; Start 03/07/17 at 18:00 Insulin Glargine (Lantus) 15 unit DAILY@21 SC Last administered on 03/07/17 20 :11; Admin Dose 15 UNIT; Start 03/07/17 at 21:00 EVA YIP Mar 08, 2017 10:17
--- NOTE | 2017-03-08 11:44 | CONS ---
Date/Time of Note Date/Time of Note DATE: 03/08/17 TIME: 11:41 Assessment/Plan Assessment/Plan Additional Assessment/Plan Assessment and recommendations; 1. Patient admitted with supra exacerbation and acute bronchitis with significant clinical improvement. 2. History of diabetes. 3. Acute increase in serum creatinine. Lasix withheld yesterday. Patient started on IV hydration. Obtain basic metabolic panel. If the patient's serum creatinine is showing downward trend I would recommend discharging the patient home. Meanwhile discontinue Solu-Medrol. Patient will need another few days of oral antibiotic for relief of acute bronchitis. Patient also needs to be compliant with his outpatient medications for his COPD. Start prednisone 20 mg daily. To be tapered off in 3 days. Consultation Date/Type/Reason Admit Date/Time Mar 06, 2017 at 04:16 Initial Consult Date 03/06/17 Type of Consultation: Pulmonary 24 HR Interval Summary Free Text/Dictation Patient condition stable. Denies any shortness of breath, wheezing. Complains of mild cough. General exam; elderly male, awake and alert. Currently in no distress. Exam/Review of Systems Vital Signs Vitals Vital Signs Date Time Temp Pulse Resp B/P Pulse Ox O2 Delivery O2 Flow Rate FiO2 03/08/17 11:32 98.5 66 18 119/66 93 03/08/17 05:26 2.0 03/06/17 23:27 21 03/06/17 23:27 Nasal Cannula Intake and Output 03/07/17 03/07/17 03/08/17 15:00 23:00 07:00 Intake Total 100 ml 750 ml 500 ml Output Total 1400 ml 1000 ml Balance 100 ml -650 ml -500 ml Exam HEENT exam; supple neck, no JVD. No lymphadenopathy. Midline trachea. No thyromegaly. Patient is edentulous. Chest exam; diminished but clear breath sounds. S1-S2 audible, no murmurs. Regular rhythm. Abdomen exam; soft, no organomegaly. Nontender. Bowel sounds audible. Extremity exam; no peripheral edema. No clubbing. S[employer]ER [employer] PENCILS exam; no focal deficit. Results Result Diagram: 03/06/17 0311 03/07/17 0637 Results 24 hrs Laboratory Tests Test 03/07/17 17:09 03/07/17 20:00 03/08/17 07:55 Bedside Glucose 310 H 186 150 Medications Medications Current Medications Albuterol (Proventil 0.083% (Neb)) 2.5 mg Q6 PRN NEB SHORTNESS OF BREATH; Start 03/06/17 at 12:30 Ipratropium [place] (Atrovent 0.02% (Neb)) 0.5 mg Q6H PRN NEB SHORTNESS OF BREATH Last administered on 03/06/17 23:22; Admin Dose 0.5 MG; Start 03/06/17 at 12:30 Salmeterol Xinafoate/ Fluticasone (Advair 500/50 Diskus) 1 inh BID INH Last administered on 03/08/17 08:55; Admin Dose 1 INH; Start 03/06/17 at 21:00 Hydralazine HCl (Apresoline) 10 mg Q6 PRN IV ELEVATED BLOOD PRESSURE; Start 04/12 at 12:30 Pantoprazole (Protonix Tab) 40 mg DAILY@06 PO Last administered on 03/08/17 04 :15; Admin Dose 40 MG; Start 03/07/17 at 06:00 Methylprednisolone Sodium Succinate 60 mg 60 mg DAILY IV Last administered on 09:00; Admin Dose 60 MG; Start 03/07/17 at 09:00 Levofloxacin/ Dextrose (Levaquin 500mg/ D5W 100 ml (Pmx)) 100 ml @ 100 mls/hr DAILY IVPB Last administered on 03/08/17 09:00; Admin Dose 100 MLS/HR; Start 03/06/17 at 13:00 Miscellaneous Information 1 ea NOTE XX ; Start 03/06/17 at 12:30 Glucose (Glutose) 15 gm Q15M PRN PO DECREASED GLUCOSE; Start 03/06/17 at 12:30 Glucose (Glutose) 22.5 gm Q15M PRN PO DECREASED GLUCOSE; Start 03/06/17 at 12: 30 Dextrose (D50w Syringe) 25 ml Q15M PRN IV DECREASED GLUCOSE; Start 03/06/17 at 12:30 Dextrose (D50w Syringe) 50 ml Q15M PRN IV DECREASED GLUCOSE; Start 03/06/17 at 12:30 Glucagon (Glucagen) 1 mg Q15M PRN IM DECREASED GLUCOSE; Start 03/06/17 at 12:30 Glucose (Glutose) 15 gm Q15M PRN BUCCAL DECREASED GLUCOSE; Start 03/06/17 at 12 :30 Acetaminophen (Tylenol Tab) 650 mg Q6H PRN PO TEMP GREATER THAN 100.6; Start at 13:00 Albuterol 2 puff 2 puff Q6H INH Last administered on 03/08/17 09:49; Admin Dose 2 PUFF; Start 03/06/17 at 16:30 Sodium Chloride (NS) 1,000 ml @ 75 mls/hr [id number] IV Last administered on 03/07 23:41; Admin Dose 75 MLS/HR; Start 03/07/17 at 10:30 Enoxaparin Sodium (Lovenox) 40 mg DAILY SC Last administered on 03/08/17 09:07 ; Admin Dose 40 MG; Start 03/07/17 at 18:00 Insulin Glargine (Lantus) 15 unit DAILY@21 SC Last administered on 03/07/17 20 :11; Admin Dose 15 UNIT; Start 03/07/17 at 21:00 MAURIZIO OMER Mar 08, 2017 11:43
[2017-03-08] MEDS ORDERED: predniSONE 20 MG TAB PO ONE (12:00)
[2017-03-08] MEDS: SOD CHLORIDE 0.9% 1,000 ML IV SCH (12:08)
[2017-03-08 13:29] LABS: CALCIUM 9.1 mg/dl (8.4-10.2); CREATININE 1.03 mg/dl (0.61-1.24); POTASSIUM 4.9 mmol/L (3.5-5.1)
[2017-03-08] MEDS ORDERED: LORAZEPAM 1 MG TAB ONE (20:40)
[2017-03-08] MEDS: INSULIN GLARGINE [LANtus] 3 ML PEN SC SCH (20:49)
[2017-03-08] MEDS: LORAZEPAM 0.5 MG TAB PO PRN (22:32)
[2017-03-09] VITALS (12 sets, daily range): BP systolic 129–183; BP diastolic 63–90; PULSE 60–85; RESP 17–20
[2017-03-09] MEDS: ALBUTEROL 18 GM INHALER INH SCH ×4 (04:30→22:30)
[2017-03-09] MEDS ORDERED: LORAZEPAM 1 MG TAB ONE ×2 (04:43→14:52)
[2017-03-09] MEDS: LORAZEPAM 0.5 MG TAB PO PRN ×2 (04:50→15:03)
[2017-03-09] MEDS: PANTOPRAZOLE (EC) 40 MG TAB PO SCH (05:06)
[2017-03-09] MEDS: LEVOFLOXACIN 500 MG TAB PO SCH (05:06)
[2017-03-09] MEDS: INSULIN ASPART [NOVOLOG] 3 ML PEN SC SCH ×7 (08:00→20:17)
[2017-03-09] MEDS: ENOXAPARIN 40 MG/0.4 ML SYG SC SCH (08:46)
[2017-03-09] MEDS: SALMETEROL/FLUTICASONE 500/50 INHA INH SCH ×2 (08:46→20:18)
--- NOTE | 2017-03-09 09:37 | CONS ---
Date/Time of Note Date/Time of Note DATE: 03/09/17 TIME: 09:35 Assessment/Plan Assessment/Plan Additional Assessment/Plan Assessment recommendations; 1. Patient admitted with COPD exacerbation and acute bronchitis with significant clinical improvement. 2. Prerenal azotemia with normalization of renal function after patient's Lasix was discontinued and patient rehydrated. Continue current treatment. Consider discharge. Consultation Date/Type/Reason Admit Date/Time Mar 06, 2017 at 04:16 Initial Consult Date 03/06/17 Type of Consultation: Pulmonary 24 HR Interval Summary Free Text/Dictation Patient condition stable. Denies any shortness of breath, wheezing, has a mild cough with very scant sputum production. General exam; elderly male, awake and alert. Currently in no distress. Exam/Review of Systems Vital Signs Vitals Vital Signs Date Time Temp Pulse Resp B/P Pulse Ox O2 Delivery O2 Flow Rate FiO2 03/09/17 09: 62 03/09/17 07:52 98.1 18 161/76 94 03/09/17 05:24 2.0 03/06/17 23:27 21 03/06/17 23:27 Nasal Cannula Intake and Output 03/08/17 03/08/17 03/09/17 14:59 22:59 06:59 Intake Total 1040 ml 250 ml Output Total 1200 ml 850 ml Balance -160 ml -600 ml Exam HEENT exam; supple neck, no JVD. No lymphadenopathy. Midline trachea. No thyromegaly. Pharynx is clear. Patient is mostly edentulous. Chest exam; diminished but clear breath sound. S1-S2 audible, no murmurs. Regular rhythm. Abdomen exam; soft, no organomegaly. Bowel sounds audible. Nontender. Extremity exam; no peripheral edema. No clubbing. Pulses 1+ bilaterally. LEVI MAKER exam; no focal deficit. Results Result Diagram: 03/06/17 0311 03/08/17 1254 Results 24 hrs Laboratory Tests Test 03/08/17 11:50 03/08/17 12:54 03/08/17 17:11 03/08/17 20:45 Bedside Glucose 168 284 H 162 Sodium Level 140 Potassium Level 4.9 Chloride Level 98 Carbon Dioxide Level 36 H Anion Gap 11 Blood Urea Nitrogen 36 H Creatinine 1.03 Glucose Level 181 Calcium Level 9.1 Test 03/09/17 08:40 Bedside Glucose 101 Medications Medications Current Medications Albuterol (Proventil 0.083% (Neb)) 2.5 mg Q6 PRN NEB SHORTNESS OF BREATH; Start 03/06/17 at 12:30 Ipratropium [place] (Atrovent 0.02% (Neb)) 0.5 mg Q6H PRN NEB SHORTNESS OF BREATH Last administered on 03/06/17 23:22; Admin Dose 0.5 MG; Start 03/06/17 at 12:30 Salmeterol Xinafoate/ Fluticasone (Advair 500/50 Diskus) 1 inh BID INH Last administered on 03/09/17 08:46; Admin Dose 1 INH; Start 03/06/17 at 21:00 Hydralazine HCl (Apresoline) 10 mg Q6 PRN IV ELEVATED BLOOD PRESSURE; Start 04/12 at 12:30 Pantoprazole (Protonix Tab) 40 mg DAILY@06 PO Last administered on 03/09/17 05 :06; Admin Dose 40 MG; Start 03/07/17 at 06:00 Miscellaneous Information 1 ea NOTE XX ; Start 03/06/17 at 12:30 Glucose (Glutose) 15 gm Q15M PRN PO DECREASED GLUCOSE; Start 03/06/17 at 12:30 Glucose (Glutose) 22.5 gm Q15M PRN PO DECREASED GLUCOSE; Start 03/06/17 at 12: 30 Dextrose (D50w Syringe) 25 ml Q15M PRN IV DECREASED GLUCOSE; Start 03/06/17 at 12:30 Dextrose (D50w Syringe) 50 ml Q15M PRN IV DECREASED GLUCOSE; Start 03/06/17 at 12:30 Glucagon (Glucagen) 1 mg Q15M PRN IM DECREASED GLUCOSE; Start 03/06/17 at 12:30 Glucose (Glutose) 15 gm Q15M PRN BUCCAL DECREASED GLUCOSE; Start 03/06/17 at 12 :30 Acetaminophen (Tylenol Tab) 650 mg Q6H PRN PO TEMP GREATER THAN 100.6; Start at 13:00 Albuterol (Ventolin Hfa) 2 puff Q6H INH Last administered on 03/08/17 15:45; Admin Dose 2 PUFF; Start 03/06/17 at 16:30 Enoxaparin Sodium (Lovenox) 40 mg DAILY SC Last administered on 03/09/17 08:46 ; Admin Dose 40 MG; Start 03/07/17 at 18:00 Insulin Glargine (Lantus) 15 unit DAILY@21 SC Last administered on 03/08/17 20 :49; Admin Dose 15 UNIT; Start 03/07/17 at 21:00 Levofloxacin (Levaquin) 500 mg DAILY@06 PO Last administered on 03/09/17 05:06 ; Admin Dose 500 MG; Start 03/09/17 at 06:00 Lorazepam (Ativan) 0.5 mg Q8H PRN PO ANXIETY Last administered on 03/09/17 04: 50; Admin Dose 0.5 MG; Start 03/08/17 at 19:30 MAURIZIO OMER Mar 09, 2017 09:37
--- NOTE | 2017-03-09 11:35 | PN ---
Date/Time of Note Date/Time of Note DATE: 03/09/17 TIME: 11:26 Assessment/Plan Lines/Catheters IV Catheter Type (from Nrs): Peripheral IV Assessment/Plan Assessment/Plan COPD (chronic obstructive pulmonary disease) - Pulmonary consult- Dr Islas notified - breathing treatment - solumedrol - Levaquin - JEROME- elevated Cr- 1.41 sec to Diuresis- Lasix DCD now, con t to monitor - will get Nephrology if doesnt improve. CHF (congestive heart failure) - Acute systolic congestive heart failure - Cardiology consult- Dr Rincon - 2d ECHO - BLE SWELLING - Venous Doppler r/o DVT-negative - Elevate BLE at all times Hypertensive emergency- BP stable now - sp FACIAL & HEAD SURGERY Current some day smoker, QUIT 20 YEARS AGO - Smoking cessation PLAN: Dw Dr Erazo/staff Subjective 24 Hr Interval Summary Free Text/Dictation sp fall today, denies any pain, injury. Will do PT evaluation before discharge. dw staff. Cardiovascular: no complaints Gastrointestinal: no complaints Genitourinary: no complaints Musculoskeletal: no complaints Skin: no complaints Exam/Review of Systems Vital Signs Vitals Vital Signs Date Time Temp Pulse Resp B/P Pulse Ox O2 Delivery O2 Flow Rate FiO2 03/09/17 09:17 62 03/09/17 07:52 98.1 18 161/76 94 03/09/17 05:24 2.0 03/06/17 23:27 21 03/06/17 23:27 Nasal Cannula Intake and Output 03/08/17 03/08/17 03/09/17 15:00 23:00 07:00 Intake Total 1040 ml 250 ml Output Total 1200 ml 850 ml Balance -160 ml -600 ml Exam Constitutional: alert, well developed Respiratory: clear to auscultation, normal air movement Cardiovascular: nl pulses, regular rate and rhythm Gastrointestinal: non-tender, soft Musculoskeletal: nl extremities to inspection Neurological: nl mental status, nl speech Results Result Diagram: 03/06/17 0311 03/08/17 1254 Results 24 hrs Laboratory Tests Test 03/08/17 11:50 03/08/17 12:54 03/08/17 17:11 03/08/17 20:45 Bedside Glucose 168 284 H 162 Sodium Level 140 Potassium Level 4.9 Chloride Level 98 Carbon Dioxide Level 36 H Anion Gap 11 Blood Urea Nitrogen 36 H Creatinine 1.03 Glucose Level 181 Calcium Level 9.1 Test 03/09/17 08:40 Bedside Glucose 101 Medications Medications Current Medications Albuterol (Proventil 0.083% (Neb)) 2.5 mg Q6 PRN NEB SHORTNESS OF BREATH; Start 03/06/17 at 12:30 Ipratropium [place] (Atrovent 0.02% (Neb)) 0.5 mg Q6H PRN NEB SHORTNESS OF BREATH Last administered on 03/06/17 23:22; Admin Dose 0.5 MG; Start 03/06/17 at 12:30 Salmeterol Xinafoate/ Fluticasone (Advair 500/50 Diskus) 1 inh BID INH Last administered on 03/09/17 08:46; Admin Dose 1 INH; Start 03/06/17 at 21:00 Hydralazine HCl (Apresoline) 10 mg Q6 PRN IV ELEVATED BLOOD PRESSURE; Start 04/12 at 12:30 Pantoprazole (Protonix Tab) 40 mg DAILY@06 PO Last administered on 03/09/17 05 :06; Admin Dose 40 MG; Start 03/07/17 at 06:00 Miscellaneous Information 1 ea NOTE XX ; Start 03/06/17 at 12:30 Glucose (Glutose) 15 gm Q15M PRN PO DECREASED GLUCOSE; Start 03/06/17 at 12:30 Glucose (Glutose) 22.5 gm Q15M PRN PO DECREASED GLUCOSE; Start 03/06/17 at 12: 30 Dextrose (D50w Syringe) 25 ml Q15M PRN IV DECREASED GLUCOSE; Start 03/06/17 at 12:30 Dextrose (D50w Syringe) 50 ml Q15M PRN IV DECREASED GLUCOSE; Start 03/06/17 at 12:30 Glucagon (Glucagen) 1 mg Q15M PRN IM DECREASED GLUCOSE; Start 03/06/17 at 12:30 Glucose (Glutose) 15 gm Q15M PRN BUCCAL DECREASED GLUCOSE; Start 03/06/17 at 12 :30 Acetaminophen (Tylenol Tab) 650 mg Q6H PRN PO TEMP GREATER THAN 100.6; Start at 13:00 Albuterol (Ventolin Hfa) 2 puff Q6H INH Last administered on 03/08/17 15:45; Admin Dose 2 PUFF; Start 03/06/17 at 16:30 Enoxaparin Sodium (Lovenox) 40 mg DAILY SC Last administered on 03/09/17 08:46 ; Admin Dose 40 MG; Start 03/07/17 at 18:00 Insulin Glargine (Lantus) 15 unit DAILY@21 SC Last administered on 03/08/17 20 :49; Admin Dose 15 UNIT; Start 03/07/17 at 21:00 Levofloxacin (Levaquin) 500 mg DAILY@06 PO Last administered on 03/09/17 05:06 ; Admin Dose 500 MG; Start 03/09/17 at 06:00 Lorazepam (Ativan) 0.5 mg Q8H PRN PO ANXIETY Last administered on 03/09/17 04: 50; Admin Dose 0.5 MG; Start 03/08/17 at 19:30 EVA YIP Mar 09, 2017 11:35
[2017-03-09] MEDS: INSULIN GLARGINE [LANtus] 3 ML PEN SC SCH (20:19)
[2017-03-10] VITALS (11 sets, daily range): BP systolic 142–176; BP diastolic 62–74; PULSE 61–70; RESP 19–20
[2017-03-10] MEDS: ALBUTEROL 18 GM INHALER INH SCH ×4 (04:30→22:02)
[2017-03-10] MEDS: LEVOFLOXACIN 500 MG TAB PO SCH (06:02)
[2017-03-10] MEDS: PANTOPRAZOLE (EC) 40 MG TAB PO SCH (06:02)
[2017-03-10] MEDS: INSULIN ASPART [NOVOLOG] 3 ML PEN SC SCH ×7 (08:00→20:20)
[2017-03-10 08:15] LABS: BASOPHILS % 0.1 % (0.0-2.0); EOSINOPHILS # 0.1 10^3/ul (0.0-0.5); EOSINOPHILS % 1.6 % (0.0-7.0); HEMATOCRIT 39.8 % (42.0-52.0); HEMOGLOBIN 12.5 g/dl (14.0-18.0); LYMPHOCYTES # 1.2 10^3/ul (0.8-2.9); MEAN CORPUSCULAR HEMOGLOBIN 28.9 pg (29.0-33.0); MEAN CORPUSCULAR HGB CONC 31.4 g/dl (32.0-37.0); MEAN CORPUSCULAR VOLUME 91.9 fl (82.0-101.0); MEAN PLATELET VOLUME 9.7 fl (7.4-10.4); MONOCYTE # 0.6 10^3/ul (0.3-0.9); MONOCYTES % 8.6 % (0.0-11.0); NEUTROPHIL # 4.9 10^3/ul (1.6-7.5); NEUTROPHILS % 72.4 % (39.0-77.0); PLATELET COUNT 177 10^3/UL (140-415); RED BLOOD COUNT 4.33 10^6/ul (4.70-6.10); RED CELL DISTRIBUTION WIDTH 12.8 % (11.5-14.5); WHITE BLOOD COUNT 6.8 10^3/ul (4.8-10.8)
[2017-03-10 08:34] LABS: CALCIUM 8.7 mg/dl (8.4-10.2); CREATININE 0.73 mg/dl (0.61-1.24); POTASSIUM 4.3 mmol/L (3.5-5.1)
[2017-03-10] MEDS: SALMETEROL/FLUTICASONE 500/50 INHA INH SCH ×2 (09:19→20:12)
[2017-03-10] MEDS: ENOXAPARIN 40 MG/0.4 ML SYG SC SCH (09:20)
--- NOTE | 2017-03-10 11:08 | CONS ---
Date/Time of Note Date/Time of Note DATE: 03/10/17 TIME: 11:06 Assessment/Plan Assessment/Plan Additional Assessment/Plan Assessment recommendations; 1. Patient admitted with COPD exacerbation and acute bronchitis with marked clinical improvement. 2. Stable diabetes. 3. Mild increase in serum creatinine with normalization of renal function after patient rehydrated. 4. Mild thrombocytopenia. Continue current treatment. Consider discharge. Consultation Date/Type/Reason Admit Date/Time Mar 06, 2017 at 04:16 Initial Consult Date 03/06/17 Type of Consultation: Pulmonary 24 HR Interval Summary Free Text/Dictation Patient's condition is stable. He wants to go home. Denies any chest pain, coughing has improved. Complains of scant sputum production. Denies any wheezing or shortness of breath. General exam; elderly male, awake and alert. Currently in no distress. Exam/Review of Systems Vital Signs Vitals Vital Signs Date Time Temp Pulse Resp B/P Pulse Ox O2 Delivery O2 Flow Rate FiO2 03/10/17 08:54 63 03/10/17 08:32 2.0 03/10/17 07:45 98.2 20 144/65 95 03/09/17 15:01 Room Air 03/06/17 23:27 21 Intake and Output 03/09/17 03/09/17 03/10/17 15:00 23:00 07:00 Intake Total 850 ml 800 ml Output Total 1000 ml Balance 850 ml -200 ml Exam HEENT exam; supple neck, no JVD. No lymphadenopathy. Midline trachea. No thyromegaly. Patient is mostly edentulous. Chest exam; diminished but clear breath sounds. No added sound. S1-S2 audible , no murmurs. Regular rhythm. Abdomen exam; soft, nontender. No organomegaly. Bowel sounds audible. Extremity exam; no peripheral edema. [employer] exam; no focal deficit. Results Result Diagram: 03/10/17 0710 03/10/17 0710 Results 24 hrs Laboratory Tests Test 03/09/17 11:34 03/09/17 20:16 03/10/17 07:10 03/10/17 08:14 Bedside Glucose 110 141 102 White Blood Count 6.8 Red Blood Count 4.33 L Hemoglobin 12.5 L Hematocrit 39.8 L Mean Corpuscular Volume 91.9 Mean Corpuscular Hemoglobin 28.9 L Mean Corpuscular Hemoglobin Concent 31.4 L Red Cell Distribution Width 12.8 Platelet Count 177 Mean Platelet Volume 9.7 Neutrophils % 72.4 Lymphocytes % 17.0 Monocytes % 8.6 Eosinophils % 1.6 Basophils % 0.1 Nucleated Red Blood Cells % 0.0 Neutrophils # 4.9 Lymphocytes # 1.2 Monocytes # 0.6 Eosinophils # 0.1 Basophils # 0.0 Nucleated Red Blood Cells # 0.0 Sodium Level 137 Potassium Level 4.3 Chloride Level 93 L Carbon Dioxide Level 44 *H Anion Gap 4 L Blood Urea Nitrogen 23 #H Creatinine 0.73 Glucose Level 103 # Calcium Level 8.7 Medications Medications Current Medications Albuterol (Proventil 0.083% (Neb)) 2.5 mg Q6 PRN NEB SHORTNESS OF BREATH; Start 03/06/17 at 12:30 Ipratropium [place] (Atrovent 0.02% (Neb)) 0.5 mg Q6H PRN NEB SHORTNESS OF BREATH Last administered on 03/06/17 23:22; Admin Dose 0.5 MG; Start 03/06/17 at 12:30 Salmeterol Xinafoate/ Fluticasone (Advair 500/50 Diskus) 1 inh BID INH Last administered on 03/10/17 09:19; Admin Dose 1 INH; Start 03/06/17 at 21:00 Hydralazine HCl (Apresoline) 10 mg Q6 PRN IV ELEVATED BLOOD PRESSURE; Start 04/12 at 12:30 Pantoprazole (Protonix Tab) 40 mg DAILY@06 PO Last administered on 03/10/17 06 :02; Admin Dose 40 MG; Start 03/07/17 at 06:00 Miscellaneous Information 1 ea NOTE XX ; Start 03/06/17 at 12:30 Glucose (Glutose) 15 gm Q15M PRN PO DECREASED GLUCOSE; Start 03/06/17 at 12:30 Glucose (Glutose) 22.5 gm Q15M PRN PO DECREASED GLUCOSE; Start 03/06/17 at 12: 30 Dextrose (D50w Syringe) 25 ml Q15M PRN IV DECREASED GLUCOSE; Start 03/06/17 at 12:30 Dextrose (D50w Syringe) 50 ml Q15M PRN IV DECREASED GLUCOSE; Start 03/06/17 at 12:30 Glucagon (Glucagen) 1 mg Q15M PRN IM DECREASED GLUCOSE; Start 03/06/17 at 12:30 Glucose (Glutose) 15 gm Q15M PRN BUCCAL DECREASED GLUCOSE; Start 03/06/17 at 12 :30 Acetaminophen (Tylenol Tab) 650 mg Q6H PRN PO TEMP GREATER THAN 100.6 Last administered on 03/09/17 19:32; Admin Dose 650 MG; Start 03/06/17 at 13:00 Albuterol (Ventolin Hfa) 2 puff Q6H INH Last administered on 03/09/17 10:30; Admin Dose 2 PUFF; Start 03/06/17 at 16:30 Enoxaparin Sodium (Lovenox) 40 mg DAILY SC Last administered on 03/10/17 09:20 ; Admin Dose 40 MG; Start 03/07/17 at 18:00 Insulin Glargine (Lantus) 15 unit DAILY@21 SC Last administered on 03/09/17 20 :19; Admin Dose 15 UNIT; Start 03/07/17 at 21:00 Levofloxacin (Levaquin) 500 mg DAILY@06 PO Last administered on 03/10/17 06:02 ; Admin Dose 500 MG; Start 03/09/17 at 06:00 Lorazepam (Ativan) 0.5 mg Q8H PRN PO ANXIETY Last administered on 03/09/17 15: 03; Admin Dose 0.5 MG; Start 03/08/17 at 19:30 MAURIZIO OMER Mar 10, 2017 11:08
--- NOTE | 2017-03-10 19:23 | PN ---
Date/Time of Note Date/Time of Note DATE: 03/10/17 TIME: 19:19 Assessment/Plan VTE Prophylaxis VTE Prophylaxis Intervention: SCD's Lines/Catheters IV Catheter Type (from Nrsg): Peripheral IV Assessment/Plan Assessment/Plan -COPD (chronic obstructive pulmonary disease) - Pulmonary consult- Dr Islas notified - breathing treatment - solumedrol - Levaquin - JEROME- elevated [place]- 0.73 today- RESOLVED- con t to monitor - will get Nephrology if doesnt improve. CHF (congestive heart failure) - Acute systolic congestive heart failure - Cardiology consult- Dr Rincon - 2d ECHO - BLE SWELLING - Venous Doppler r/o DVT-negative - Elevate BLE at all times Hypertensive emergency- BP stable now - sp FACIAL & HEAD SURGERY Current some day smoker, QUIT 20 YEARS AGO - Smoking cessation PLAN: DC home on home o2, prednisone as recommended by pulmonary. dw staff Dw Dr Erazo/staff Subjective 24 Hr Interval Summary Respiratory: no complaints Cardiovascular: no complaints Gastrointestinal: no complaints Genitourinary: no complaints Musculoskeletal: no complaints Exam/Review of Systems Vital Signs Vitals Vital Signs Date Time Temp Pulse Resp B/P Pulse Ox O2 Delivery O2 Flow Rate FiO2 03/10/17 17:11 70 03/10/17 16:16 98.4 20 146/62 97 03/10/17 08:32 2.0 03/09/17 15:01 Room Air 03/06/17 23:27 21 Intake and Output 03/09/17 03/09/17 03/10/17 15:00 23:00 07:00 Intake Total 850 ml 800 ml Output Total 1000 ml Balance 850 ml -200 ml Exam Constitutional: alert, well developed Respiratory: diminished breath sounds Cardiovascular: nl pulses, regular rate and rhythm Gastrointestinal: non-tender, soft Musculoskeletal: nl extremities to inspection Extremities: normal pulses Neurological: nl speech Results Result Diagram: 03/10/17 0710 03/10/17 0710 Results 24 hrs Laboratory Tests Test 03/09/17 20:16 03/10/17 07:10 03/10/17 08:14 03/10/17 17:33 Bedside Glucose 141 102 186 White Blood Count 6.8 Red Blood Count 4.33 L Hemoglobin 12.5 L Hematocrit 39.8 L Mean Corpuscular Volume 91.9 Mean Corpuscular Hemoglobin 28.9 L Mean Corpuscular Hemoglobin Concent 31.4 L Red Cell Distribution Width 12.8 Platelet Count 177 Mean Platelet Volume 9.7 Neutrophils % 72.4 Lymphocytes % 17.0 Monocytes % 8.6 Eosinophils % 1.6 Basophils % 0.1 Nucleated Red Blood Cells % 0.0 Neutrophils # 4.9 Lymphocytes # 1.2 Monocytes # 0.6 Eosinophils # 0.1 Basophils # 0.0 Nucleated Red Blood Cells # 0.0 Sodium Level 137 Potassium Level 4.3 Chloride Level 93 L Carbon Dioxide Level 44 *H Anion Gap 4 L Blood Urea Nitrogen 23 #H Creatinine 0.73 Glucose Level 103 # Calcium Level 8.7 Medications Medications Current Medications Albuterol (Proventil 0.083% (Neb)) 2.5 mg Q6 PRN NEB SHORTNESS OF BREATH; Start 03/06/17 at 12:30 Ipratropium [place] (Atrovent 0.02% (Neb)) 0.5 mg Q6H PRN NEB SHORTNESS OF BREATH Last administered on 03/06/17 23:22; Admin Dose 0.5 MG; Start 03/06/17 at 12:30 Salmeterol Xinafoate/ Fluticasone (Advair 500/50 Diskus) 1 inh BID INH Last administered on 03/10/17 09:19; Admin Dose 1 INH; Start 03/06/17 at 21:00 Hydralazine HCl (Apresoline) 10 mg Q6 PRN IV ELEVATED BLOOD PRESSURE; Start 04/12 at 12:30 Pantoprazole (Protonix Tab) 40 mg DAILY@06 PO Last administered on 03/10/17 06 :02; Admin Dose 40 MG; Start 03/07/17 at 06:00 Miscellaneous Information 1 ea NOTE XX ; Start 03/06/17 at 12:30 Glucose (Glutose) 15 gm Q15M PRN PO DECREASED GLUCOSE; Start 03/06/17 at 12:30 Glucose (Glutose) 22.5 gm Q15M PRN PO DECREASED GLUCOSE; Start 03/06/17 at 12: 30 Dextrose (D50w Syringe) 25 ml Q15M PRN IV DECREASED GLUCOSE; Start 03/06/17 at 12:30 Dextrose (D50w Syringe) 50 ml Q15M PRN IV DECREASED GLUCOSE; Start 03/06/17 at 12:30 Glucagon (Glucagen) 1 mg Q15M PRN IM DECREASED GLUCOSE; Start 03/06/17 at 12:30 Glucose (Glutose) 15 gm Q15M PRN BUCCAL DECREASED GLUCOSE; Start 03/06/17 at 12 :30 Acetaminophen (Tylenol Tab) 650 mg Q6H PRN PO TEMP GREATER THAN 100.6 Last administered on 03/09/17 19:32; Admin Dose 650 MG; Start 03/06/17 at 13:00 Albuterol (Ventolin Hfa) 2 puff Q6H INH Last administered on 03/10/17 16:30; Admin Dose 2 PUFF; Start 03/06/17 at 16:30 Enoxaparin Sodium (Lovenox) 40 mg DAILY SC Last administered on 03/10/17 09:20 ; Admin Dose 40 MG; Start 03/07/17 at 18:00 Insulin Glargine (Lantus) 15 unit DAILY@21 SC Last administered on 03/09/17 20 :19; Admin Dose 15 UNIT; Start 03/07/17 at 21:00 Levofloxacin (Levaquin) 500 mg DAILY@06 PO Last administered on 03/10/17 06:02 ; Admin Dose 500 MG; Start 03/09/17 at 06:00 Lorazepam (Ativan) 0.5 mg Q8H PRN PO ANXIETY Last administered on 03/09/17 15: 03; Admin Dose 0.5 MG; Start 03/08/17 at 19:30 EVA YIP Mar 10, 2017 19:23
[2017-03-10] MEDS ORDERED: LORAZEPAM 1 MG TAB ONE (20:18)
[2017-03-10] MEDS: LORAZEPAM 0.5 MG TAB PO PRN (20:19)
[2017-03-10] MEDS: INSULIN GLARGINE [LANtus] 3 ML PEN SC SCH (20:19)
[2017-03-11] VITALS (11 sets, daily range): BP systolic 99–141; BP diastolic 52–68; PULSE 66–94; RESP 17–21
[2017-03-11] MEDS: ALBUTEROL 18 GM INHALER INH SCH ×2 (05:05→09:21)
[2017-03-11] MEDS: PANTOPRAZOLE (EC) 40 MG TAB PO SCH (05:05)
[2017-03-11] MEDS: LEVOFLOXACIN 500 MG TAB PO SCH (05:06)
[2017-03-11 06:58] LABS: BASOPHILS % 0.1 % (0.0-2.0); EOSINOPHILS # 0.2 10^3/ul (0.0-0.5); EOSINOPHILS % 2.2 % (0.0-7.0); HEMATOCRIT 40.4 % (42.0-52.0); HEMOGLOBIN 12.7 g/dl (14.0-18.0); LYMPHOCYTES # 1.1 10^3/ul (0.8-2.9); LYMPHOCYTES % 15.6 % (15.0-51.0); MEAN CORPUSCULAR HEMOGLOBIN 28.5 pg (29.0-33.0); MEAN CORPUSCULAR HGB CONC 31.4 g/dl (32.0-37.0); MEAN CORPUSCULAR VOLUME 90.8 fl (82.0-101.0); MEAN PLATELET VOLUME 9.5 fl (7.4-10.4); MONOCYTE # 0.8 10^3/ul (0.3-0.9); MONOCYTES % 10.4 % (0.0-11.0); NEUTROPHIL # 5.2 10^3/ul (1.6-7.5); NEUTROPHILS % 71.6 % (39.0-77.0); PLATELET COUNT 202 10^3/UL (140-415); RED BLOOD COUNT 4.45 10^6/ul (4.70-6.10); RED CELL DISTRIBUTION WIDTH 12.8 % (11.5-14.5); WHITE BLOOD COUNT 7.2 10^3/ul (4.8-10.8)
[2017-03-11 07:25] LABS: CALCIUM 8.9 mg/dl (8.4-10.2); CREATININE 0.77 mg/dl (0.61-1.24); POTASSIUM 3.9 mmol/L (3.5-5.1)
[2017-03-11] MEDS: SALMETEROL/FLUTICASONE 500/50 INHA INH SCH (09:16)
[2017-03-11] MEDS: ENOXAPARIN 40 MG/0.4 ML SYG SC SCH (09:18)
[2017-03-11] MEDS: INSULIN ASPART [NOVOLOG] 3 ML PEN SC SCH ×4 (09:20→12:00)
--- NOTE | 2017-03-11 10:48 | PN ---
Date/Time of Note Date/Time of Note DATE: 03/11/17 TIME: 10:40 Assessment/Plan VTE Prophylaxis VTE Prophylaxis Intervention: other Lines/Catheters IV Catheter Type (from Nrs): Peripheral IV Assessment/Plan Assessment/Plan -COPD (chronic obstructive pulmonary disease) - Pulmonary consult- Dr Islas notified - breathing treatment - solumedrol - Levaquin - JEROME- elevated Creatinine- 0.77 today- RESOLVED- con t to monitor - will get Nephrology if doesnt improve. CHF (congestive heart failure) - Acute systolic congestive heart failure - Cardiology consult- Dr Rincon - 2d ECHO - BLE SWELLING- improved - Venous Doppler r/o DVT-negative - Elevate BLE at all times Hypertensive emergency- BP stable now - sp FACIAL & HEAD SURGERY Current some day smoker, QUIT 20 YEARS AGO - Smoking cessation PLAN: DC home on home o2, prednisone as recommended by pulmonary- prednisone 20 mg daily. To be tapered off in 3 days. dw staff Dw Dr Erazo/staff Exam/Review of Systems Vital Signs Vitals Vital Signs Date Time Temp Pulse Resp B/P Pulse Ox O2 Delivery O2 Flow Rate FiO2 03/11/17 08:24 94 03/11/17 07:58 99.0 19 99/52 94 03/11/17 07:51 2.0 03/09/17 15:01 Room Air Intake and Output 03/10/17 03/10/17 03/11/17 15:00 23:00 07:00 Intake Total 600 ml 600 ml Balance 600 ml 600 ml Exam Constitutional: alert, well developed Respiratory: clear to auscultation, normal air movement Cardiovascular: S4 (SR with BBB, HR 89), other Gastrointestinal: non-tender, soft Musculoskeletal: nl extremities to inspection Extremities: normal pulses Neurological: nl speech Results Result Diagram: 03/11/17 0634 03/11/17 0634 Results 24 hrs Laboratory Tests Test 03/10/17 17:33 03/10/17 20:11 03/11/17 06:34 03/11/17 07:37 Bedside Glucose 186 136 224 H White Blood Count 7.2 Red Blood Count 4.45 L Hemoglobin 12.7 L Hematocrit 40.4 L Mean Corpuscular Volume 90.8 Mean Corpuscular Hemoglobin 28.5 L Mean Corpuscular Hemoglobin Concent 31.4 L Red Cell Distribution Width 12.8 Platelet Count 202 Mean Platelet Volume 9.5 Neutrophils % 71.6 Lymphocytes % 15.6 Monocytes % 10.4 Eosinophils % 2.2 Basophils % 0.1 Nucleated Red Blood Cells % 0.0 Neutrophils # 5.2 Lymphocytes # 1.1 Monocytes # 0.8 Eosinophils # 0.2 Basophils # 0.0 Nucleated Red Blood Cells # 0.0 Sodium Level 140 Potassium Level 3.9 Chloride Level 95 L Carbon Dioxide Level 41 *H Anion Gap 8 Blood Urea Nitrogen 19 Creatinine 0.77 Glucose Level 258 #H Calcium Level 8.9 Medications Medications Current Medications Albuterol (Proventil 0.083% (Neb)) 2.5 mg Q6 PRN NEB SHORTNESS OF BREATH; Start 03/06/17 at 12:30 Ipratropium [place] (Atrovent 0.02% (Neb)) 0.5 mg Q6H PRN NEB SHORTNESS OF BREATH Last administered on 03/06/17 23:22; Admin Dose 0.5 MG; Start 03/06/17 at 12:30 Salmeterol Xinafoate/ Fluticasone (Advair 500/50 Diskus) 1 inh BID INH Last administered on 03/11/17 09:16; Admin Dose 1 INH; Start 03/06/17 at 21:00 Hydralazine HCl (Apresoline) 10 mg Q6 PRN IV ELEVATED BLOOD PRESSURE; Start 04/12 at 12:30 Pantoprazole (Protonix Tab) 40 mg DAILY@06 PO Last administered on 03/11/17 05 :05; Admin Dose 40 MG; Start 03/07/17 at 06:00 Miscellaneous Information 1 ea NOTE XX ; Start 03/06/17 at 12:30 Glucose (Glutose) 15 gm Q15M PRN PO DECREASED GLUCOSE; Start 03/06/17 at 12:30 Glucose (Glutose) 22.5 gm Q15M PRN PO DECREASED GLUCOSE; Start 03/06/17 at 12: 30 Dextrose (D50w Syringe) 25 ml Q15M PRN IV DECREASED GLUCOSE; Start 03/06/17 at 12:30 Dextrose (D50w Syringe) 50 ml Q15M PRN IV DECREASED GLUCOSE; Start 03/06/17 at 12:30 Glucagon (Glucagen) 1 mg Q15M PRN IM DECREASED GLUCOSE; Start 03/06/17 at 12:30 Glucose (Glutose) 15 gm Q15M PRN BUCCAL DECREASED GLUCOSE; Start 03/06/17 at 12 :30 Acetaminophen (Tylenol Tab) 650 mg Q6H PRN PO TEMP GREATER THAN 100.6 Last administered on 03/09/17 19:32; Admin Dose 650 MG; Start 03/06/17 at 13:00 Albuterol (Ventolin Hfa) 2 puff Q6H INH Last administered on 03/11/17 09:21; Admin Dose 2 PUFF; Start 03/06/17 at 16:30 Enoxaparin Sodium (Lovenox) 40 mg DAILY SC Last administered on 03/11/17 09:18 ; Admin Dose 40 MG; Start 03/07/17 at 18:00 Insulin Glargine (Lantus) 15 unit DAILY@21 SC Last administered on 03/10/17 20 :19; Admin Dose 15 UNIT; Start 03/07/17 at 21:00 Levofloxacin (Levaquin) 500 mg DAILY@06 PO Last administered on 03/11/17 05:06 ; Admin Dose 500 MG; Start 03/09/17 at 06:00 Lorazepam (Ativan) 0.5 mg Q8H PRN PO ANXIETY Last administered on 03/10/17 20: 19; Admin Dose 0.5 MG; Start 03/08/17 at 19:30 EVA YIP Mar 11, 2017 10:48
[2017-03-11] MEDS ORDERED: HYDR25TA6 PO (11:44)
[2017-03-11] MEDS ORDERED: METF500T PO (11:44)
[2017-03-11] MEDS ORDERED: LORA-441 PO (11:44)
[2017-03-11] MEDS ORDERED: LEVO500T72 PO (11:44)
[2017-03-11] MEDS ORDERED: ASPI-535 PO (11:44)
--- NOTE | 2017-03-11 11:51 | PDOCDIS ---
Discharge Instructions CONDITION Patient Condition: Stable HOME CARE INSTRUCTIONS: Diet Instructions: Low Fat /Cholesterol ACTIVITY: Activity Restrictions: Rest between Activity Avoid heavy lifting Do not Drive Do not operate Machinery Do not operate Power Tool Avoid Heavy Housework Bathing Restrictions: Sponge Bath FOLLOW UP/APPOINTMENTS Follow-up Plan FU with Primary MD X 1 WEEK FU with cardiology- Dr Rincon x 1 week FU with cardiology /pulmonary as as recommended Patient/friend verbalized under Dw Dr garcia/staff EVA YIP Mar 11, 2017 11:51
[2017-03-11] MEDS ORDERED: HYDROCHLOROTHIAZIDE 25 MG TAB PO SCH (12:00)
[2017-03-11] MEDS ORDERED: ASPIRIN (EC) 81 MG TAB PO ONE (12:00)
[2017-03-11] MEDS ORDERED: SOD CHLORIDE 0.9% 250 ML IV ONE ×2 (12:00)
[2017-03-11] MEDS ORDERED: PRED20TA PO (18:52)
[2017-03-12] MEDS ORDERED: ASPIRIN (EC) 81 MG TAB PO SCH (09:00)
== END 2017-03-11 16:10 | disposition home or self-care (01) | DRG 190 ==
LOC: E/R 02:20 → MS4 04:16
PROVIDERS: ADMIT Internal Medicine; ATTEND Internal Medicine
DX: J44.1 Chronic obstructive pulmonary disease with (acute) exacerbation (principal); I50.21 Acute systolic (congestive) heart failure; D69.6 Thrombocytopenia, unspecified; E11.9 Type 2 diabetes mellitus without complications; I11.0 Hypertensive heart disease with heart failure; Z87.891 Personal history of nicotine dependence; R79.89 Other specified abnormal findings of blood chemistry
CPT/HCPCS: 36415; 71010; 80048; 80053; 80061; 82962; 83036; 83690; 83880; 84484; 85025; 93005; 93306; 93970; 94644; 94664; 96374; 96375; 97116; 97161; 97530; J1650; J1815; J1940; J1956; J2405; J2930; J7030; J7040; J7512

== ENCOUNTER → 2017-03-15 | Outpatient (CLI) | payer MEDICARE, OTHER ==
[~2017-03-15] MED LIST changes: -ACET500C5 PO; -AMOX1TAB10 PO; +ASPI-535 PO; +HYDR25TA6 PO; +LEVO500T72 PO; +LORA-441 PO; +METF500T PO; +PRED20TA PO
== END | disposition home or self-care (01) ==
LOC: DIB 07:29
PROVIDERS: ATTEND Internal Medicine
DX: Z02.9 Encounter for administrative examinations, unspecified (principal)

== ENCOUNTER 2017-07-19 08:00 | Outpatient (CLI) | END 2017-07-19 23:59 | disposition home or self-care (01) ==

== ENCOUNTER 2018-03-08 16:27 | Emergency (ER) | END 2018-03-08 18:38 | disposition home or self-care (01) ==

== ENCOUNTER 2018-07-07 00:12 | Emergency (ER) | payer MEDICARE, OTHER ==
[~2018-07-07] VITALS: Wt 69.1 kg
[~2018-07-07 00:12] MED LIST changes: -ASPI-535 PO; +ASPI-817 PO; +AZIT250T PO; +CELE200C PO; -HYDR25TA6 PO; +IPRA4AER INHALATION; +ISOS30TA67 PO; -LEVO500T72 PO; -LORA-441 PO; +LORA10TA3 PO; +METF100010 PO; -METF500T PO; +METO-448 PO; -RTATR NEB; -SELE118S2 TOP
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
[2018-07-07] MEDS ORDERED: AZIT250T PO (02:26)
[2018-07-07] MEDS ORDERED: MED4DP PO (02:26)
[2018-07-07] MEDS ORDERED: SOD CHLORIDE 0.9% 500 ML IV ONE (02:30)
[2018-07-07 03:29] VITALS: BP 144/64; PULSE 78; RESP 16
== END 2018-07-07 03:31 | disposition home or self-care (01) ==
LOC: E/R 00:12
DX: J44.9 Chronic obstructive pulmonary disease, unspecified (principal); E86.0 Dehydration; D64.9 Anemia, unspecified; E11.9 Type 2 diabetes mellitus without complications; I11.0 Hypertensive heart disease with heart failure; I50.9 Heart failure, unspecified; Z79.82 Long term (current) use of aspirin; Z79.84 Long term (current) use of oral hypoglycemic drugs; Z87.891 Personal history of nicotine dependence
CPT/HCPCS: 36415; 71045; 80053; 83880; 84484; 85025; 85610; 85730; 93005; 99285; J7040

== ENCOUNTER 2018-08-21 14:27 | Emergency (ER) | payer MEDICARE, OTHER ==
[~2018-08-21] VITALS: Ht 172.7 cm; Wt 69.5 kg
[~2018-08-21 14:27] MED LIST changes: +MED4DP PO; -PRED20TA PO
[2018-08-21 14:45] VITALS: Ht 172.7 cm; Wt 69.5 kg
[2018-08-21] MEDS ORDERED: SOD CHLORIDE 0.9% 1,000 ML IV STA (15:11)
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
[2018-08-21 16:24] VITALS: BP 127/69; PULSE 79; RESP 17
== END 2018-08-21 17:08 | disposition home or self-care (01) ==
LOC: E/R 14:27
DX: R42 Dizziness and giddiness (principal); R79.89 Other specified abnormal findings of blood chemistry; J44.9 Chronic obstructive pulmonary disease, unspecified; R40.2142 Coma scale, eyes open, spontaneous, at arrival to emergency department; R40.2362 Coma scale, best motor response, obeys commands, at arrival to emergency department; R40.2252 Coma scale, best verbal response, oriented, at arrival to emergency department; Z79.84 Long term (current) use of oral hypoglycemic drugs; Z79.82 Long term (current) use of aspirin; Z87.891 Personal history of nicotine dependence
CPT/HCPCS: 36415; 71045; 80048; 84484; 85025; 93005; 96360; 99285; J7030

== ENCOUNTER 2018-09-20 16:41 | Emergency (ER) | payer MEDICARE, OTHER ==
[~2018-09-20] VITALS: Ht 165.1 cm; Wt 70.9 kg
[2018-09-20 16:44] VITALS: BP 153/70; PULSE 63; RESP 20; Ht 165.1 cm; Wt 70.9 kg
== END 2018-09-20 18:48 | disposition left against medical advice (07) ==
LOC: FTE 16:41
DX: Z53.21 Procedure and treatment not carried out due to patient leaving prior to being seen by health care provider (principal)